=== PATIENT | male | born 1935 | race Caucasian/White ===

== ENCOUNTER 2017-02-04 07:55 | Inpatient (IN) | payer MEDICARE, OTHER ==
[~2017-02-04] VITALS: Ht 177.8 cm; Wt 82.6 kg
[~2017-02-04 07:55] MED LIST: ADULT LOW DOSE81 MG PO; AMITRIPTYLINE PO; AMITRIPTYLINE25 MG PO; CLONIDINE 0.1M0.1 MG TD; CLONIDINE 0.2M0.2 MG PO; CLOPIDOGREL75 M2 PO; DIFLUCAN100 MG PO; DITROPAN 5MG TAB5 MG PO; DOCUSATE SODIU100 MG PO; GENTAMICIN IV; LEVAQUIN500 MG PO; LEVOTHYROXINE0.05 M2 PO; LEVOTHYROXINE0.05 M3 PO; LISINOPRIL 20MG20 MG PO; LISINOPRIL20 MG PO; MACROBID 100MG100 M1 PO; METAMUCIL MULTI1 CAP PO; METAMUCIL(SF)1 EACH PO; NORTRIPTYLINE H25 M2 PO; OMEPRAZOLE20 MG PO; PERPHENAZINE4 MG PO; PERSANTINE50 MG PO; PROBIOTIC 15 B1 EACH PO; SURFAK 240MG C240 MG PO; TERAZOSIN PO; VALTREX1 GM PO; [UNRECOGNIZED DRUG - OTHER] PO
[2017-02-04 10:14] VITALS: BP 174/103
[2017-02-04 10:18] LABS: BUN 80 mg/dL (7-18); GFR (ESTIMATED) 11 ML/MIN (>60)
[2017-02-04] MEDS ORDERED: METOPROLOL SUCC50 M4 PO (10:38)
[2017-02-04] MEDS ORDERED: MYRBETRIQ25 MG PO (10:39)
[2017-02-04] MEDS ORDERED: AMLO5TAB PO ×2 (10:39→13:54)
[2017-02-04] MEDS ORDERED: DESIPRAMINE HCL25 MG PO (10:40)
[2017-02-04] MEDS ORDERED: METAMUCIL0.4 GM PO (10:41)
--- NOTE | 2017-02-04 10:52 | RADIOLOGY REPORT PS360 ---
CHEST-PORTABLE HISTORY: HBP, Acute renal insufficiency ORDERING PHYSICIAN: Roxana Virgen MD PATIENT AGE: 81 years COMPARISON: 10/04/2014 FINDINGS: There is mild cardiomegaly without failure. There is prominent tortuosity/ectasia of the thoracic aorta. There is increased density in the right lower lobe suggesting underlying atelectasis or infiltrate. The remaining lungs are clear.. No acute bony abnormalities. IMPRESSION: Mild cardiomegaly with tortuous/ectatic aorta with right basilar atelectasis or infiltrate.
[2017-02-04 11:57] VITALS: BP 174/103
--- NOTE | 2017-02-04 12:07 | HISTORY AND PHYSICAL REPORT ---
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 He was seen in the office of [facility] on 01/30/17 with elevated BP and metoprolol was added to his HTN med regime. Lisinopril, AMlodipine and Clonidine were continued. Lab results reported 02/03/14 revealed a K+ of 5.9, BUN 67, creatinine 3.4 and TSH of 5.4. PSA was 7.21 (was 8.5 07/25/16). Dr. Virgen contacted the patient's and arranged for admission today for further evaluation and treatment. Patient has denied CP and SOB. The patient's , who is a good historian, communicates the details of his problems. He has not been eating or drinking as well the past week but has had no nausea/vomiting/diarrhea. Bp has been elevated and she has been giving him the prn clonidine once or twice daily. He has been voiding as usually in his depends. He has had continuation of his "spells" where he slumps over like he is going to pass out with SOB. When asked if he is hurting at these times, he indicates that he is hurting all over. The spells are more sudden and occur with exertion. He does not have these every day. He was evaluated for the spells 4 years ago at [facility] when the family thought he was having another stroke. Studies at that time did not indicate strokes, but did not indicate a specific causative factor. At the time of this exam the patient denies pain and SOB. and son are at bedside. Past Medical History: Medical History: CAD? No Angina: No IA: No Hypertension? Yes Hyperlipidemia? No CHF? No COPD? Yes Asthma? No Anemia? No GERD? No Gastric ulcers? Yes GI Bleed? No Hernia? No Thyroid Problems? Yes Hypothyroidism? Yes CVA? Yes (right sided weakness) Seizures? No Diabetes? No Renal Insuffiency? Yes UTI? Yes Stones? No BPH? Yes GB Disease: No Nephritic Syndrome? No Asplenia? No Hepatitis? No Sickle Cell Disease? No Cataracts? No Glaucoma? No MRSA? No TB? No Depression? Yes Cancer? No Surgical history: Previous Surgery?Y DISCECTOMY 1968 KNEE ARTHROSCOPY DEVIATED SEPTUM Allergies: Coded Allergies: No Known Allergies (02/04/17) Family History: Family history: Negative for: CAD, DM. Social History: Smoking Hx Tobacco: No Smoker: Former Smoker Type: Cigarettes Packs/day: N/A Are you exposed to second hand No Alcohol: Alcohol: No Hx of Drug Use: Drug Use? No Patien't marital status is: Patient's support system is: excellent Review of Systems: Constitutional Positive for: weak. ENT No: ear ache, mouth pain, sore throat. Cardiovascular Positive for: DEXTER, edema. No: chest pain, palpitations. Respiratory Positive for: shortness of air. No: non-productive, productive cough (sputum), wheezing. GI No: GERD, abdominal pain, constipation, diarrhea, hematemeis, hematochezia, melena, nausea, vomitting. Neurological Positive for: weakness (dysarthia). No: confusion, headache, seizure, syncope. Physical Exam: Vital signs: 1ST Vital Signs Result Date Time Pulse Ox 98 02/04 1014 B/P 174/103 02/04 1014 O2 Delivery ROOM AIR 02/04 1014 Temp 97.7 02/04 1014 Pulse 64 02/04 1014 Resp 18 02/04 1014 Exam: General appearance: normal appearance, alert, no acute distress, well- developed, well-nourished Eyes: anicteric, pupils reactive to light ENT: mucous membranes moist, pharynx normal Neck: no carotid bruit, supple, lymphadenopathy (absent), thyroid (normal) Cardiovascular: normal sinus rhythm, regular rate & rhythm, no murmur, edema, irregularly irregular (right ankle) Respiratory: clear to auscultation (bilat anterior and posterior), good air movement ABD: non-distended, soft, no tenderness, no guarding, bowel sounds present, palpable liver Extremities: edema of right ankle; no palpable cords or masses in right leg; left leg without edema Neuro: alert, oriented, masklike facies, other, speech is slow and soft; mostly yes and no answers or nods head; slight left facial droop Lab data: Labs: Laboratory Tests 02/04/17 0950: Sodium 136, Potassium 5.9 H, Chloride 107, Carbon Dioxide 16 L, BUN 80 H, Creatinine 5.0 H, Estimated GFR (MDRD) 11, Glucose 120 H, Calcium 8.1 L, Total Bilirubin 0.5, AST 18, ALT 31, Alkaline Phosphatase 122 H, Total Protein 7.6, Albumin 3.7, Globulin 3.9 H, Albumin/Globulin Ratio 0.9 L Radiology results: Results: CXR 02/04/17 IMPRESSION: Mild cardiomegaly with tortuous/ectatic aorta with right basilar atelectasis or infiltrate. Diagnosis(es): 1. Acute renal failure Status: Acute 2. Benign prostatic hypertrophy Status: Chronic 3. Near syncope Status: Acute 4. Uncontrolled hypertension Status: Acute 5. Depression Status: Chronic 6. COPD Status: Chronic 7. History of CVA with residual deficit Status: Chronic Plan: IVF at 75/hour; HTN meds as ordered; Renal US and carotid studies; monitor labs (Corinna Bird APRN) Past Medical History: Medications: Reported Medications Lisinopril 20 MG PO DAILY #90 TAB L. Acidophilus/L. Rhamnosus (Probiotic 15 Billion Cell Cap) 1 EACH PO DAILY Amlodipine Besylate (Amlodipine) 5 MG PO QHS #60 TAB Mirabegron (Myrbetriq) 25 MG PO MoWeFr #30 TAB DESIPRAMINE HCL (Desipramine HCl) 25 MG PO MoWeFr #60 TAB Psyllium Husk (Metamucil) 0.4 GM PO DAILY Amlodipine Besylate (Amlodipine) 5 MG PO MoWeFr ASPIRIN (Aspirin) 81 MG PO DAILY LEVOTHYROXINE SOD (Levothyroxine 0.05MG) 0.05 MG PO DAILY Clonidine Hydrochloride (Clonidine 0.2MG Tab) 0.1 MG PO Q6H PRN PRN HTN Metoprolol Succinate (Metoprolol Succinate XL) 50 MG PO DAILY #30 CLOPIDOGREL BISULFATE (Clopidogrel) 75 MG PO DAILY #90 Diagnosis(es): 1. Uncontrolled hypertension Status: Acute 2. Acute renal failure Status: Acute 3. Hyperkalemia 4. Benign prostatic hypertrophy Status: Chronic 5. Near syncope Status: Acute 6. Depression Status: Chronic 7. COPD Status: Chronic 8. History of CVA with residual deficit Status: Chronic Plan: Pt seen and examined. Concur with above and will get cardiology consult (Roxana Virgen MD) at 1206 at [id number]
--- NOTE | 2017-02-04 12:10 | CARDIOVASCULAR REPORT ---
"Cerebrovascular Exam Indications: CVA 436. IMPRESSIONS 1. The bilateral subclavian arteries reveal no evidence of significant stenosis. 2. Study suggests 20-49% stenosis involving the right internal carotid artery and the left external carotid artery, lower end of scale. Carotid duplex study. Complete study and Doppler flow study including spectral analysis, color and matt scale imaging. Height: Height: 177.8cm. Height: 70in. Weight: Weight: 82.1kg. Weight: 180.6lb. Body mass index: BMI: 26kg/m^2. Body surface area: BSA: 2.02m^2. Location: Bedside. Patient status: Inpatient. Tables: Arterial flow: + +--------+--------+ |Location |V sys |V ed | + +--------+--------+ |Right CCA - proximal|68.5cm/s|11.9cm/s| + +--------+--------+ |Right CCA - distal |45.2cm/s|11.8cm/s| + +--------+--------+ |Right ECA |40.9cm/s|--------| + +--------+--------+ |Right ICA - proximal|36.2cm/s|9.8cm/s | + +--------+--------+ |Right ICA - mid |32.2cm/s|8.3cm/s | + +--------+--------+ |Right ICA - distal |24.6cm/s|10.1cm/s| + +--------+--------+ |Right vertebral |37.7cm/s|--------| + +--------+--------+ |Left CCA - proximal |34.7cm/s|5cm/s | + +--------+--------+ |Left CCA - distal |35.2cm/s|7cm/s | + +--------+--------+ |Left ECA |47.2cm/s|--------| + +--------+--------+ |Left ICA - proximal |28.8cm/s|8.2cm/s | + +--------+--------+ |Left ICA - mid |40.3cm/s|10.5cm/s| + +--------+--------+ |Left ICA - distal |42.6cm/s|11.5cm/s| + +--------+--------+ |Left vertebral |39cm/s |--------| + +--------+--------+ Velocity ratios: + + + + + + | |Right, V sys|Right, V ed|Left, V sys|Left, V ed| + + + + + + |Max ICA/dist CCA|0.8 |0.86 |1.21 |1.63 | + + + + + + (Report amended ) Electronically signed by: Christian Yates [id number]"
[2017-02-04 12:18] LABS: LYMPH # 0.7 K/mm3 (0.7-4.5); LYMPH % 9.6 % (10-50)
[2017-02-04 12:22] LABS: HEMOGLOBIN 10.6 g/dL (14.1-18.0)
--- NOTE | 2017-02-04 14:51 | RADIOLOGY REPORT PS360 ---
US [id number] HISTORY: uncontrolled HBP, acute renal insufficiency ORDERING PHYSICIAN: Roxana Virgen MD PATIENT AGE: 81 years COMPARISON: None FINDINGS: RIGHT KIDNEY:7.5 x 4 x 5.7 cm. No hydronephrosis. There is mild cortical thinning. LEFT KIDNEY:9.5 x 5.8 x 3.8 cm. No hydronephrosis. Cortical thinning. OTHER FINDINGS: Incidental left pleural effusion noted. IMPRESSION: Bilateral renal cortical thinning.
[2017-02-04 16:00] VITALS: BP 185/113
--- NOTE | 2017-02-04 16:47 | CONSULT NOTE ---
Standard Demographics Patient Demo Date of Consultation: 02/04/17 Referring Provider: Zhen Virgen MD Reason for Consultation: UNCONTROLLED HYPERTENSION, SHORTNESS OF BREATH, RENAL INS PRIMARY DIAGNOSIS: ACUTE RENAL INSUFFICIENCY Problem list Problem list: 1. Uncontrolled hypertension 2. Acute renal insufficiency with hyperkalemia 3. Shortness of breath with physical activity 4. Status post CVA 5. Chronic obstructive pulmonary disease and History of present illness: History of present illness: Chief complaint Shortness of breath, uncontrolled hypertension. Briefly Mr. Montoya is a pleasant 81-year-old gentleman with history of hypertension and hypertensive heart disease, status post CVA, nonobstructive carotid disease, chronic obstructive pulmonary disease, who presented to the hospital with worsening shortness of breath and found to have uncontrolled hypertension as well as acute renal failure associated with hyperkalemia. He describes no orthopnea PND he denied any exertional chest pain although he is physically not very active due to residual weakness from CVA. There is no history of hematemesis or melena, he denied any nausea and vomiting, he denies any fever or chills. Past Medical History: General: Hypertension Yes CVA Yes (right sided weakness) Seizures No TB No COPD No Asthma No Diabetes No Angina No [place] No Hyperlipidemia No Urinary Yes Cancer No Rheumatic H.D. No Ulcers No MRSA No GB Disease No Additional hx AAA Past Surgical HX: Previous Surgery?Y DISCECTOMY 1968 KNEE ARTHROSCOPY DEVIATED SEPTUM Allergies Coded Allergies: No Known Allergies (02/04/17) Home medications: Reported Medications Lisinopril 20 MG PO DAILY #90 TAB L. Acidophilus/L. Rhamnosus (Probiotic 15 Billion Cell Cap) 1 EACH PO DAILY Amlodipine Besylate (Amlodipine) 5 MG PO QHS #60 TAB Mirabegron (Myrbetriq) 25 MG PO MoWeFr #30 TAB DESIPRAMINE HCL (Desipramine HCl) 25 MG PO MoWeFr #60 TAB Psyllium Husk (Metamucil) 0.4 GM PO DAILY Amlodipine Besylate (Amlodipine) 5 MG PO MoWeFr ASPIRIN (Aspirin) 81 MG PO DAILY LEVOTHYROXINE SOD (Levothyroxine 0.05MG) 0.05 MG PO DAILY Clonidine Hydrochloride (Clonidine 0.2MG Tab) 0.1 MG PO Q6H PRN PRN HTN Metoprolol Succinate (Metoprolol Succinate XL) 50 MG PO DAILY #30 CLOPIDOGREL BISULFATE (Clopidogrel) 75 MG PO DAILY #90 Current Medications: Current Medications Amlodipine Besylate 5 MG MoWeFr@0900 PO Aspirin 81 MG DAILY PO Clopidogrel Bisulfate 75 MG DAILY PO Levothyroxine Sodium 0.05 MG DAILY PO Amlodipine Besylate 5 MG QHS PO (DC) Clonidine HCl 0.1 MG BID PO (DC) Isosorbide Dinitrate 10 MG TID PO Hydralazine HCl 25 MG Q8 PO Isosorbide Dinitrate 10 MG Q8 PO (DC) Clonidine HCl 0.1 MG TID PO Sodium Chloride 10 ML PRN PRN IV Patient Own Medication 1 UNIT MoWeFr PO Acetaminophen 650 MG Q4HP PRN PO Influenza Virus Vaccine Quadrival 0.5 ML PRN PRN IM Nicotine 21 MG DAILYP PRN TD Sodium Chloride 1,000 ML .[id number] IV Immunization HX DT/Tetanus Unknown Flu Refused Pneumonia Refuses TB Test in last year No Family history Family HX Diabetes Yes CAD Yes Hypertension No Hyperlipidemia No Cancer No TB No Social Hx: Smoking HX Tobacco No Type Cigarettes Packs/day N/A Are you/the child exposed to second-hand smoke: No Alcohol Alcohol: No Hx of Drug Use Drug Use? No Review of systems: Constitutional see HPI. Respiratory see HPI. Cardiovascular see HPI Gastrointestinal/Abdominal see HPI Genitourinary see HPI. Musculoskeletal see HPI. Neurological Yes: see HPI. Exam: Admission Vital Signs: 1ST Vital Signs Result Date Time Pulse Ox 98 02/04 1014 B/P 174/103 02/04 1014 O2 Delivery ROOM AIR 02/04 1014 Temp 97.7 02/04 1014 Pulse 64 02/04 1014 Resp 18 02/04 1014 Last Vital Signs: Vital Signs Result Date Time Pulse Ox 93 02/04 1600 B/P 185/113 02/04 1600 O2 Delivery ROOM AIR 02/04 1600 Temp 98.4 02/04 1600 Pulse 80 02/04 1600 Resp 20 02/04 1600 Exam General appearance: alert Neck: carotid bruit Cardiovascular: no JVD, regular rate & rhythm, normal peripheral pulses, no peripheral edema, murmur (systolic AORTIC AREA1/6), S4 present Respiratory: clear to auscultation ABD: non-distended, normal bowel sounds, no rebound, soft Extremities: no peripheral edema, femoral pulses, warm Laboratory data: Laboratory Tests 02/04/17 1200: WBC 7.5, RBC 3.38 L, Hgb 10.6 L, Hct 32.7 L, MCV 96.6, RDW 15.2, Plt Count 171, MPV 7.5, Gran % 82.6 H, Gran # 6.2, Lymphocytes % 9.6 L, Monocytes % 5.7, Eosinophils % 1.7, Basophils % 0.5, Lymphocytes # 0.7, Monocytes # 0.4, Eosinophils # 0.1, Basophils # 0.0, PUBS MCHC 32.3, MCH 31.3 H 02/04/17 0950: Sodium 136, Potassium 5.9 H, Chloride 107, Carbon Dioxide 16 L, BUN 80 H, Creatinine 5.0 H, Estimated GFR (MDRD) 11, Glucose 120 H, Calcium 8.1 L, Total Bilirubin 0.5, AST 18, ALT 31, Alkaline Phosphatase 122 H, Total Protein 7.6, Albumin 3.7, Globulin 3.9 H, Albumin/Globulin Ratio 0.9 L Plan: Assessment: 1. Hypertension and hypertensive heart disease with uncontrolled blood pressure 2. Acute renal failure with hyperkalemia. 3. Shortness of breath 4. Status post CVA 5. Chronic obstructive pulmonary disease Recommendations: 1. Hydralazine 25 mg every 8 hours 2. Isordil 10 mg every 8 hours 3. Clonidine 0.1 mg every 8 hours. 4. Decrease amlodipine 5 mg once daily 5. 2-D echo and Doppler 6. Will follow with you at 3244
--- NOTE | 2017-02-04 17:50 | RADIOLOGY REPORT PS360 ---
PROCEDURE: 2-D M-mode and color Doppler study INDICATIONS FOR THE TEST: Chest pain COPD+ Heart Murmur Tobacco Smoking Palpitations Fatigue+ Syncope Edema+ Hypertension+Diabetes Mellitus Rheumatic Fever SOB DEXTER+Obesity Hyperlipidemia+ Family History HD Additional History hx of CVA, Hx of smoking (quit 2008) PATIENT INFORMATION HEIGHT: WEIGHT: GENDER: Male B/P: 2-D/M-MODE INTERPRETATION: 2-D MEASUREMENTS OBSERVED VALUES IN CMS Right Ventricular Dimension (RVDd) 2.3 Interventricular Septum (Thickness)(IVsd) 1.2 Left Ventricular Internal Dimensions(LVIDd) 5.2 Left Ventricular Posterior Wall (Thickness)(LVPWd) 1.2 Aortic Root 2.2 Aortic Cusp Separation 2.0 Left Atrial Dimensions (LAD) 2.7 2D 1. Left atrium is qualitatively mildly enlarged, left ventricle is mildly dilated, there is mild concentric left ventricular hypertrophy, there is severely reduced left ventricular systolic function, visually estimated ejection fraction approximately 35%, there is marked hypokinesis involving the inferior and inferolateral and posterolateral wall, endocardial surface are somewhat poorly visualized. 2. The right atrium and right ventricle are relatively normal size and function. 3. The aortic valve is thickened and calcified leaflet, display mobility. 4. The mitral valve has mitral calcification there is no mitral stenosis. 5. The tricuspid valve is structurally normal. 6. The pulmonic valve is not well visualized. 7. No significant pericardial effusion noted. DOPPLER INTERROGATION: Doppler interrogation of the aortic mitral and tricuspid valvular presence of mild aortic, mild mitral and tricuspid regurgitation, tricuspid regurgitant jet velocity is insufficient for calculation of the right ventricular systolic pressure, grade 1 diastolic dysfunction seen with tissue Doppler evidence of raised left atrial pressure. CONCLUSION: 1. Mildly enlarged left atrium, mildly dilated left ventricle, mild concentric left ventricular hypertrophy, reduced left ventricular systolic function, visually estimated ejection fraction approximately 35% with multiple segmental wall motion abnormality described above. 2. Mild aortic, mild mitral and tricuspid regurgitation. 3. Grade 1 diastolic dysfunction seen with Doppler evidence of raised left atrial pressure. 4. No significant pericardial effusion noted.
[2017-02-04 19:38] VITALS: BP 157/87
[2017-02-04 20:56] VITALS: BP 157/87
[2017-02-05] VITALS (9 sets, daily range): BP systolic 138–169; BP diastolic 69–92
[2017-02-05 06:28] LABS: LYMPH % 11.9 % (10-50)
[2017-02-05 06:37] LABS: HEMOGLOBIN 9.4 g/dL (14.1-18.0)
--- NOTE | 2017-02-05 07:18 | PHARMACY CLINIC NOTE ---
Patient Demographics Patient Demographics Admission date: 02/04/17 Date: 02/05/17 Time: 0718 Allergies Coded Allergies: No Known Allergies (02/04/17) HEIGHT- FT: 5 IN: 10.00 K.745 VTE General Information Labs: Laboratory Tests 02/05 02/04 0618 1200 Hematology Hgb (14.1 - 18.0 g/dL) 9.4 L 10.6 L Hct (42.0 - 52.0 %) 29.6 L 32.7 L Plt Count (142 - 424 K/mm3) 178 171 Disclaimer The following section includes nursing documentation that has been pulled in for pharmacy review. Patient's VTE score: 3 Patient's VTE Risk: LOW RISK Clinical trial participant? No VTE prophylaxis NQF [id number] VTE prophylaxis ordered? Yes Type of prophylaxis/treatment: NORIS at 0718
--- NOTE | 2017-02-05 08:30 | ACUTE CARE PROGRESS NOTE (QUA) ---
Progress Notes Subjective Date 02/05/17 Time 0821 Note Pt states patient is about the same today. He has been having a lot of wheezing and SOA since yesterday. He has been unable to provide a urine specimen. She does not think he has had pain. He is able to stand with assistance. Objective Findings Last VS-Temp:99.2 B/P:143/88 Pulse:81 Resp:24 SaO2:94 ROOM AIR Last weight lbs:160 oz:6 K.745 Method:Bed Scales Laboratory Tests 02/05/17 0618: Sodium 137, Potassium 5.9 H, Chloride 109 H, Carbon Dioxide 13 L, BUN 80 H, Creatinine 4.8 H, Estimated Creat Clear 13 L, Estimated GFR (MDRD) 12, Glucose 93, Calcium 7.9 L, Total Bilirubin 0.5, AST 16, ALT 24, Alkaline Phosphatase 101, Total Protein 6.5, Albumin 3.2 L, Globulin 3.3 H, Albumin/Globulin Ratio 1.0 L, WBC 8.1, RBC 3.08 L, Hgb 9.4 L, Hct 29.6 L, MCV 95.5, RDW 15.3, Plt Count 178, MPV 7.3 L, Gran % 79.3, Gran # 6.4, Lymphocytes % 11.9, Monocytes % 5.0, Eosinophils % 3.2, Basophils % 0.6, Lymphocytes # 1.0, Monocytes # 0.4, Eosinophils # 0.3, Basophils # 0.1, PUBS MCHC 31.6 L, MCH 30.2 02/04/17 1200: Troponin I 0.05, WBC 7.5, RBC 3.38 L, Hgb 10.6 L, Hct 32.7 L, MCV 96.6, RDW 15.2, Plt Count 171, MPV 7.5, Gran % 82.6 H, Gran # 6.2, Lymphocytes % 9.6 L, Monocytes % 5.7, Eosinophils % 1.7, Basophils % 0.5, Lymphocytes # 0.7, Monocytes # 0.4, Eosinophils # 0.1, Basophils # 0.0, PUBS MCHC 32.3, MCH 31.3 H 02/04/17 0950: Sodium 136, Potassium 5.9 H, Chloride 107, Carbon Dioxide 16 L, BUN 80 H, Creatinine 5.0 H, Estimated GFR (MDRD) 11, Glucose 120 H, Calcium 8.1 L, Total Bilirubin 0.5, AST 18, ALT 31, Alkaline Phosphatase 122 H, Total Protein 7.6, Albumin 3.7, Globulin 3.9 H, Albumin/Globulin Ratio 0.9 L Carotid Doppler - Study suggests 20-49% stenosis involving the right internal carotid artery and the left external carotid artery, lower end of scale. CXR - Mild cardiomegaly with tortuous/ectatic aorta with right basilar atelectasis or infiltrate. Echo - Mildly enlarged left atrium, mildly dilated left ventricle, mild concentric left ventricular hypertrophy, reduced left ventricular systolic function, visually estimated ejection fraction approximately 35% with multiple segmental wall motion abnormality described above. Mild aortic, mild mitral and tricuspid regurgitation. Grade 1 diastolic dysfunction seen with Doppler evidence of raised left atrial pressure. No significant pericardial effusion noted. Renal U/S - Bilateral renal cortical thinning. Exam General appearance: awake, no acute distress, confused Cardiovascular: regular rate & rhythm Respiratory: labored breathing, expiratory wheezing bilaterally ABD: non-distended, normal bowel sounds, no rebound, soft, no tenderness, no guarding Extremities: no peripheral edema Assessment/Plan Problem List 1. Uncontrolled hypertension Status: Acute 2. Acute renal failure Status: Acute 3. Hyperkalemia 4. Benign prostatic hypertrophy Status: Chronic 5. Near syncope Status: Acute 6. Depression Status: Chronic 7. COPD Status: Chronic 8. History of CVA with residual deficit Status: Chronic 9. Shortness of breath Status: Acute 10. Wheezing Status: Acute Plan: Pt has been seen by cardiology. Note appreciated. Will repeat a CXR today and started on nebs d/t labored breathing and wheezing. Will discuss case with Dr. Virgen. This inpt stay is expected to cross 2 MNs from start of care Yes (Felipa Garcia) Subjective Date 02/05/17 Time 0836 Assessment/Plan Problem List 1. Uncontrolled hypertension Status: Acute 2. Acute renal failure Status: Acute 3. Hyperkalemia 4. Benign prostatic hypertrophy Status: Chronic 5. Near syncope Status: Acute 6. Depression Status: Chronic 7. COPD Status: Chronic 8. History of CVA with residual deficit Status: Chronic 9. Shortness of breath Status: Acute 10. Wheezing Status: Acute Plan: Pt seen and examined. Respirations more labored. Sats OK. Will repeat CXR and add Xopenex. BP is improved. Renal function marginally better. Seems to be making urine. Nurses now recording I&Os. (Roxana Virgen MD) at 0830 at 0838
[2017-02-05] MEDS ORDERED: AMLO5TAB PO (08:47)
[2017-02-05] MEDS ORDERED: MYRBETRIQ25 MG PO (08:48)
--- NOTE | 2017-02-05 09:08 | RADIOLOGY REPORT PS360 ---
CHEST-PORTABLE HISTORY: Congestion labored respirations ORDERING PHYSICIAN: Roxana Virgen MD PATIENT AGE: 81 years COMPARISON: 02/04/2017 FINDINGS: There is mild cardiomegaly without failure. There is tortuosity of the thoracic aorta.. Increasing density is present in the right lower lobe consistent with pneumonia is worse on today's exam.. Decreased density is noted in the right humerus and right scapula of cortical clinical significance.. IMPRESSION: Worsening right lower lobe pneumonia
[2017-02-05 12:41] LABS: URINE BILIRUBIN - DIPSTICK NEGATIVE (NEG); URINE BLOOD NEGATIVE (NEG)
[2017-02-05 12:59] LABS: URINE SQUAMOUS CELLS OCC #/hpf (OCC)
--- NOTE | 2017-02-05 15:29 | ACUTE CARE PROGRESS NOTE (QUA) ---
Progress Notes Subjective Date 02/05/17 Time 0150 Note Cardiology progress note Patient appears to be more comfortable today, blood pressure under better control, an echocardiogram showed severe LEFT ventricular systolic dysfunction ejection fraction of 35 percent with multiple segmental wall motion abnormalities suggestive of ischemic cardiomyopathy, Doppler evidence of greatest LEFT atrial pressure was also seen. Chest x-ray shows worsening infiltrate suggestive of pneumonia. He has more shortness of breath this morning which responded to breathing treatment. He describes no orthopnea PND or lower extremity edema. Medications: Reviewed Chest x-ray: Reviewed Labs: Reviewed. Physical exam Pulse 64 regular blood pressure 167/70 HEENT exam: JVP difficult to assess, bilateral carotid bruits versus conducted aortic murmur Lungs: Bilateral diffuse rhonchi Cardiovascular exam S1-S2, 2/6 systolic murmur in aortic area, prominent S4, no S3 Abdomen :soft bowel sounds present Extremity: Warm and perfused, no edema. Impression 1. Hypertension and hypertensive heart disease blood pressure under better control 2. Severe LV systolic dysfunction likely secondary to underlying ischemic cardiomyopathy, likely multivessel coronary artery disease, patient currently not a good candidate for aggressive intervention, we will treat medically. 3. Acute renal failure and hyperkalemia. 4. Chronic obstructive pulmonary disease and pneumonia. 5. Anemia. Recommend 1. Increase hydralazine 50 mg every 8, increased Isordil 20 mg 3 times a day. 2. Continue supportive care. 3. Discussed in length with the family members regarding the cardiac condition, we will treat conservatively. Assessment/Plan Problem List 1. Uncontrolled hypertension Status: Acute 2. Acute renal failure Status: Acute 3. Hyperkalemia 4. Benign prostatic hypertrophy Status: Chronic 5. Near syncope Status: Acute 6. Depression Status: Chronic 7. COPD Status: Chronic 8. History of CVA with residual deficit Status: Chronic 9. Shortness of breath Status: Acute 10. Wheezing Status: Acute This inpt stay is expected to cross 2 MNs from start of care Yes at [id number]
[2017-02-06 03:38] VITALS: BP 135/71
[2017-02-06] MEDS ORDERED: DESIPRAMINE HCL25 MG PO (07:35)
[2017-02-06 08:00] VITALS: BP 147/79
[2017-02-06 08:07] LABS: HEMOGLOBIN 8.6 g/dL (14.1-18.0); LYMPH # 0.6 K/mm3 (0.7-4.5); LYMPH % 8.2 % (10-50)
--- NOTE | 2017-02-06 08:35 | ACUTE CARE PROGRESS NOTE (QUA) ---
Progress Notes Subjective Date 02/06/17 Time 0831 Note Pt's breathing has improved. He did have an episode of SOA last night and did get choked this am. Overall, his states the wheezing has improved. He is extremely weak. Cardiology note appreciated. BP has improved. Objective Findings Last VS-Temp:98.2 B/P:147/79 Pulse:90 Resp:18 SaO2:95 ROOM AIR Last weight lbs:160 oz:6 K.745 Method:Bed Scales Laboratory Tests 02/06/17 0620: Sodium 137, Potassium 5.8 H, Chloride 108 H, Carbon Dioxide 11 L, BUN 82 H, Creatinine 4.6 H, Estimated Creat Clear 13 L, Estimated GFR (MDRD) 12, Glucose 97, Calcium 7.5 L, WBC 7.7, RBC 2.87 L, Hgb 8.6 L, Hct 27.2 L, MCV 94.9, RDW 15.5, Plt Count 212, MPV 6.8 L, Gran % 83.8 H, Gran # 6.4, Lymphocytes % 8.2 L, Monocytes % 5.6, Eosinophils % 1.9, Basophils % 0.5, Lymphocytes # 0.6 L, Monocytes # 0.4, Eosinophils # 0.1, Basophils # 0.0, PUBS MCHC 31.8, MCH 30.1 02/05/17 141: Mycoplasma pneumon IgM NON-REACTIVE 02/05/17 0930: Urine Color YELLOW, Urine Appearance SL CLOUDY, Urine pH 5.5, Ur Specific [place] 1.020, Urine Protein 2+ H, Urine Ketones NEGATIVE, Urine Blood NEGATIVE , Urine Nitrate NEGATIVE, Urine Bilirubin NEGATIVE, Urine Urobilinogen 0.2, Ur Leukocyte Esterase NEGATIVE, Urine WBC 5-10, Ur Squamous Epith Cells OCC, Urine Bacteria 2+, Coarse Granular Casts 3-5, Urine Glucose NEGATIVE Microbiology 02/05 1415 BLOOD: Anaerobic Blood Culture - RECD 02/05 1415 BLOOD: Aerobic Blood Culture - RECD 02/05 1415 BLOOD: Anaerobic Blood Culture - RECD 02/05 1415 BLOOD: Aerobic Blood Culture - RECD 02/05 930 URINE CC: Urine Culture - RECD Exam General appearance: alert, awake, lethargic Cardiovascular: regular rate & rhythm Respiratory: much better air movement, no wheezing ABD: non-distended, normal bowel sounds, no rebound, soft, no guarding, diffusely ttp Extremities: no peripheral edema Assessment/Plan Problem List 1. Pneumonia Status: Acute 2. Uncontrolled hypertension Status: Acute 3. Acute renal failure Status: Acute 4. Hyperkalemia 5. Benign prostatic hypertrophy Status: Chronic 6. Near syncope Status: Acute 7. Depression Status: Chronic 8. COPD Status: Chronic 9. History of CVA with residual deficit Status: Chronic 10. Shortness of breath Status: Acute 11. Wheezing Status: Acute Plan: Breathing has improved. Abx and nebs were added yesterday. Renal function is only slightly better. BP has improved. Will continue current treatment and monitor labs. This inpt stay is expected to cross 2 MNs from start of care Yes (Felipa Garcia) Subjective Date 02/06/17 Time 0845 Assessment/Plan Problem List 1. Pneumonia Status: Acute 2. Uncontrolled hypertension Status: Acute 3. Acute renal failure Status: Acute 4. Hyperkalemia 5. Benign prostatic hypertrophy Status: Chronic 6. Near syncope Status: Acute 7. Depression Status: Chronic 8. COPD Status: Chronic 9. History of CVA with residual deficit Status: Chronic 10. Shortness of breath Status: Acute 11. Wheezing Status: Acute Plan: Pt seen and examined. He is breathing comfortably this morning. Concur with above. Had long discussion with regarding multiorgan disease. (Roxana Virgen MD) at 0835 at 1208
[2017-02-06 09:00] VITALS: BP 147/79
[2017-02-06 12:00] VITALS: BP 172/66
[2017-02-06 16:01] VITALS: BP 130/71
[2017-02-06 20:35] VITALS: BP 149/82
[2017-02-07] VITALS (9 sets, daily range): BP systolic 117–177; BP diastolic 61–89
[2017-02-07 07:38] LABS: HEMOGLOBIN 8.5 g/dL (14.1-18.0); LYMPH # 0.7 K/mm3 (0.7-4.5)
--- NOTE | 2017-02-07 08:36 | ACUTE CARE PROGRESS NOTE (QUA) ---
Progress Notes Subjective Date 02/07/17 Time 0833 Note Pt states he is feeling a little better today. He slept better and ate most of his breakfast. SOA has improved. His son would like for him to be started on something for anxiety. Objective Findings Last VS-Temp:98.6 B/P:177/61 Pulse:95 Resp:18 SaO2:92 ROOM AIR Last weight lbs:170 oz:5 K.252 Method:Bed Scales Laboratory Tests 02/07/17 0645: Sodium 136, Potassium 5.6 H, Chloride 108 H, Carbon Dioxide 11 L, BUN 73 H, Creatinine 4.5 H, Estimated Creat Clear 14 L, Estimated GFR (MDRD) 13, Glucose 94, Calcium 7.6 L, WBC 6.7, RBC 2.68 L, Hgb 8.5 L, Hct 25.5 L, MCV 95.2, RDW 15.7, Plt Count 212, MPV 6.7 L, Gran % 80.2 H, Gran # 5.4, Lymphocytes % 10.0, Monocytes % 5.3, Eosinophils % 4.3, Basophils % 0.3, Lymphocytes # 0.7, Monocytes # 0.4, Eosinophils # 0.3, Basophils # 0.0, PUBS MCHC 33.4, MCH 31.8 H Exam General appearance: alert, awake, no acute distress Cardiovascular: regular rate & rhythm Respiratory: better air movement, less wheezing ABD: non-distended, normal bowel sounds, no rebound, soft, no tenderness, no guarding Extremities: no peripheral edema Assessment/Plan Problem List 1. Pneumonia Status: Acute 2. Uncontrolled hypertension Status: Acute 3. Acute renal failure Status: Acute 4. Hyperkalemia 5. Benign prostatic hypertrophy Status: Chronic 6. Near syncope Status: Acute 7. Depression Status: Chronic 8. COPD Status: Chronic 9. History of CVA with residual deficit Status: Chronic 10. Shortness of breath Status: Acute 11. Wheezing Status: Acute Plan: Renal function has only improved slightly. H&H is low. May need to transfuse today. Will discuss with Dr. Virgen. This inpt stay is expected to cross 2 MNs from start of care Yes (Felipa Garcia) Assessment/Plan Problem List 1. Pneumonia Status: Acute 2. Uncontrolled hypertension Status: Acute 3. Acute renal failure Status: Acute 4. Hyperkalemia 5. Benign prostatic hypertrophy Status: Chronic 6. Near syncope Status: Acute 7. Depression Status: Chronic 8. COPD Status: Chronic 9. History of CVA with residual deficit Status: Chronic 10. Anemia Plan: Pt seen and examined. He rested better with only one episode of dyspnea and staff and family questioned if anxiety is playing a part. Will try prn Ativan. Renal is very slowly improving and H&H has decreased a little more. Anemia is likely multifactorial but he is hemodynamically stable. Will continue to monitor and also check anemia studies. Also note he has not had BM since admission. Will resume his Metamucil. (Roxana Virgen MD) at 0836 at 1250
[2017-02-08 03:25] VITALS: BP 160/84
[2017-02-08 07:44] LABS: HEMOGLOBIN 8.5 g/dL (14.1-18.0); LYMPH # 0.8 K/mm3 (0.7-4.5); LYMPH % 11.3 % (10-50)
[2017-02-08 07:45] VITALS: BP 146/76
--- NOTE | 2017-02-08 08:44 | ACUTE CARE PROGRESS NOTE (QUA) ---
Progress Notes Subjective Date 02/08/17 Time 0841 Note Had another episode of acute resp distress after getting up to chiar yesterday afternoon. Lasted about 45 minutes. Staff notes he seemed to have more stridor than bronchospasm. He recieved a dose of Ativan and symptoms resoloved. Rested well the rest of the day and through the night. Appetite remains good. No BM but no c/o pain. Objective Findings Laboratory Tests 02/08/17 0655: Sodium 136, Potassium 5.6 H, Chloride 109 H, Carbon Dioxide 12 L, BUN 67 H, Creatinine 4.5 H, Estimated Creat Clear 15 L, Estimated GFR (MDRD) 13, Glucose 97, Calcium 7.5 L, WBC 6.7, RBC 2.76 L, Hgb 8.5 L, Hct 26.6 L, MCV 96.5, RDW 15.3, Plt Count 241, MPV 6.7 L, Gran % 74.6, Gran # 5.0, Lymphocytes % 11.3, Monocytes % 6.6, Eosinophils % 7.1, Basophils % 0.4, Lymphocytes # 0.8, Monocytes # 0.4, Eosinophils # 0.5 H, Basophils # 0.0, PUBS MCHC 32.1, MCH 31.0 02/07/17 0908: Ferritin 37 Last VS-Temp:98.2 B/P:146/76 Pulse:95 Resp:20 SaO2:95 ROOM AIR Last weight lbs:175 oz:5 K.52 Method:Bed Scales Exam General appearance: Lying in bed with eyes closed. Responds to voice and answers yes/no questions appropriately. No resp. distress Eyes: anicteric ENT: mucous membranes moist Cardiovascular: regular rate & rhythm Respiratory: diminished in bases. Very faint wheezes ABD: non-distended, normal bowel sounds, soft, no tenderness Extremities: no peripheral edema Skin: intact, warm Neuro: unchanged Reviewed: medications, vital signs, lab results, nursing notes Assessment/Plan Problem List 1. Pneumonia Status: Acute 2. Uncontrolled hypertension Status: Acute Assessment/Plan improved 3. Acute renal failure Status: Acute 4. Hyperkalemia 5. Benign prostatic hypertrophy Status: Chronic 6. Near syncope Status: Acute 7. Depression Status: Chronic 8. COPD Status: Chronic 9. History of CVA with residual deficit Status: Chronic 10. Anemia Patient condition Guarded Plan: Reviewed all diagnoses and current condition with and son. He is stable but guarded due to multiple comorbidities. Etiology of these acute episodes of resp distress is not clear but consistently occur with activity so likely related to degree of CHF, COPD and now the pneumonia. Will try adding steroids. Renal function did not show much change today. H&H has stablized. Anemia studies are pending. This inpt stay is expected to cross 2 MNs from start of care Yes at 2802
[2017-02-08 09:05] VITALS: BP 146/76
[2017-02-08 11:34] VITALS: BP 149/82
[2017-02-08 20:44] VITALS: BP 198/102
[2017-02-08 21:14] VITALS: BP 198/102
[2017-02-09] VITALS (8 sets, daily range): BP systolic 134–193; BP diastolic 70–98
[2017-02-09 06:54] LABS: URINE BILIRUBIN - DIPSTICK NEGATIVE (NEG); URINE BLOOD NEGATIVE (NEG)
[2017-02-09 06:59] LABS: LYMPH # 0.4 K/mm3 (0.7-4.5); LYMPH % 6.1 % (10-50)
[2017-02-09 07:03] LABS: HEMOGLOBIN 9.6 g/dL (14.1-18.0)
[2017-02-09 08:00] LABS: STOOL OCCULT BLOOD POSITIVE (NEG)
--- NOTE | 2017-02-09 08:32 | ACUTE CARE PROGRESS NOTE (QUA) ---
Progress Notes Subjective Date 02/09/17 Time 0817 Note Per family: did fine until 0500 at which time he awakened with pain; son who stayed the night thought he was going to have another respiratory spell. He was having abdominal discomfort. Weight gain was noted along with edema of extremities. He was given 20mg lasix IV and ibarra cath was inserted. 200ml of urine was obtained and the cath was removed. Ibarra insertion was painful. He has had 3 stools during the night. states that he did not sit in a chair yesterday and she is concerned with the elevation of the BP. He ate a good breakfast yesterday but ate poorly for lunch and dinner. Had a fairly good day yesterday. This AM patient answers yes to all questions. Objective Findings Laboratory Tests 02/09/17 0640: Urine Color YELLOW, Urine Appearance CLOUDY, Urine pH 5.0, Ur Specific [place] 1.020, Urine Protein TRACE H, Urine Ketones NEGATIVE, Urine Blood NEGATIVE, Urine Nitrate NEGATIVE, Urine Bilirubin NEGATIVE, Urine Urobilinogen 0.2, Ur Leukocyte Esterase NEGATIVE, Urine RBC OCC, Urine WBC 3-5, Ur Squamous Epith Cells 5-10, Urine Bacteria 3+, Urine Glucose NEGATIVE 02/09/17 0600: Sodium 132 L, Potassium 5.7 H, Chloride 105, Carbon Dioxide 10 *L, BUN 68 H, Creatinine 4.6 H, Estimated Creat Clear 15 L, Estimated GFR (MDRD) 12, Glucose 137 H, Calcium 8.5, WBC 5.6, RBC 3.11 L, Hgb 9.6 L, Hct 29.6 L, MCV 95.2, RDW 15.2, Plt Count 297, MPV 6.4 L, Gran % 92.3 H, Gran # 5.2, Lymphocytes % 6.1 L, Monocytes % 1.2 L, Eosinophils % 0.3, Basophils % 0.0 L, Lymphocytes # 0.4 L, Monocytes # 0.1, Eosinophils # 0.0, Basophils # 0.0, PUBS MCHC 31.9, MCH 30.3 02/09/17 0530: Stool Occult Blood POSITIVE Microbiology 02/09 0640 URINE CC: Urine Culture - RECD Vital Signs Date Time Temp Pulse Resp B/P Pulse O2 O2 Flow FiO2 Ox Delivery Rate 02/09 0816 98.0 110 24 193/98 92 ROOM AIR 02/09 0548 24 02/09 0515 95 ROOM AIR 02/09 0359 97.7 95 24 165/91 93 ROOM AIR 02/09 0033 98.9 90 20 134/70 93 ROOM AIR 02/08 2114 98.1 94 20 198/102 95 02/08 2044 98.1 94 20 198/102 95 ROOM AIR 02/08 1134 98.6 87 20 149/82 94 ROOM AIR 02/08 0905 98.2 95 20 146/76 95 Current Medications Furosemide 20 MG ONCE ONE IV (DC) Lorazepam 0 .STK-MED ONE .ROUTE (DC) Furosemide 0 .STK-MED ONE .ROUTE (DC) Methylprednisolone Sodium Succinate 0 .STK-MED ONE .ROUTE (DC) Methylprednisolone Sodium Succinate 60 MG Q8 IV Lorazepam 0.25 MG Q6HP PRN PO Psyllium Hydrophilic Mucilloid 1 EACH DAILY PO Levalbuterol HCl 1.25 MG Q6HP PRN INH Azithromycin 500 MG Q24H IV Sodium Chloride 250 ML Ceftriaxone Sodium 1 GM DAILY IV Sodium Chloride 50 ML Guaifenesin/Dextromethorphan 10 ML Q4HP PRN PO Isosorbide Dinitrate 20 MG TID PO Levalbuterol HCl 1.25 MG TIDRT INH Hydralazine HCl 50 MG Q8H PO Aspirin 81 MG DAILY PO Clopidogrel Bisulfate 75 MG DAILY PO Levothyroxine Sodium 0.05 MG DAILY PO Clonidine HCl 0.1 MG TID PO Sodium Chloride 10 ML PRN PRN IV Patient Own Medication 1 UNIT MoWeFr PO Acetaminophen 650 MG Q4HP PRN PO Influenza Virus Vaccine Quadrival 0.5 ML PRN PRN IM Nicotine 21 MG DAILYP PRN TD Sodium Chloride 1,000 ML .[id number] IV 02/08 1500 02/08 2300 02/09 0700 Intake Total 360 360 325 Output Total 500 550 600 Balance -140 -190 -275 Intake, IV 325 Intake, Oral 360 360 Output, Stool Output, Urine 500 550 600 Patient 182 lb Weight Last VS-Temp:98.0 B/P:193/98 Pulse:110 Resp:24 SaO2:92 ROOM AIR Last weight lbs:182 oz:1 K.582 Method:Bed Scales Exam General appearance: alert, no acute distress Cardiovascular: regular rate & rhythm Respiratory: poor inspiratory effort; increase in RR with any activity; Few audible crackles in the bases ABD: soft, SP tenderness; + BS soft Extremities: edema of left arm NORIS hose on ; no leg edema Neuro: alert Assessment/Plan Problem List 1. Pneumonia Status: Acute 2. Uncontrolled hypertension Status: Acute 3. Acute renal failure Status: Acute 4. Hyperkalemia 5. Benign prostatic hypertrophy Status: Chronic 6. Near syncope Status: Acute 7. Depression Status: Chronic 8. COPD Status: Chronic 9. History of CVA with residual deficit Status: Chronic 10. Anemia 11. Constipation Status: Acute 12. Abdominal pain Status: Chronic Patient condition Guarded Plan: continue current care, Will do repeat CXR and acute abdominal series This inpt stay is expected to cross 2 MNs from start of care Yes (Corinna Bird APRN) Subjective Date 02/09/17 Time 1832 Assessment/Plan Problem List 1. Pneumonia Status: Acute 2. Uncontrolled hypertension Status: Acute 3. Acute renal failure Status: Acute 4. Hyperkalemia 5. Benign prostatic hypertrophy Status: Chronic 6. Near syncope Status: Acute 7. Depression Status: Chronic 8. COPD Status: Chronic 9. History of CVA with residual deficit Status: Chronic 10. Anemia 11. Constipation Status: Acute 12. Abdominal pain Status: Chronic 13. Cardiomyopathy Plan: Pt seen on rounds this AM and again this evening. Had long discussion with and son regarding worsening prognosis. Renal function has declined and he is retaining more fluids. Pneumonia is worse on CXR. Cardiology recommendations noted. He is not a candidate for cardiac intervention and family had previously decided against dialysis so with neither of these interventions, prognosis is poor. Offered transfer to tertiary facility but with no plans for invasive procedures, family wishes for him to remain here and continue current treatment plan. Will consult pulmonology for any recommendations regarding his pneumonia. Also discussed rodent exterminator disposition options in terms of skilled care, home health or Hospice. Family would like more information from Care Management. (Param VILLAR,Roxana Fontaine) Antibiotic Stewardship (2) Current Culture Results Microbiology 02/09 0640 URINE CC: Urine Culture - RECD 02/05 1415 BLOOD: Anaerobic Blood Culture - RES 02/05 1415 BLOOD: Aerobic Blood Culture - RES Infxn that will respond? Yes Right drug,dose,and route? Yes More targeted antbx? No How long atbx needed? 10 (Corinna Bird APRN) at 0832 at 1273
--- NOTE | 2017-02-09 13:05 | RADIOLOGY REPORT PS360 ---
CHEST-PORTABLE Ordering Physician: Roxana Virgen MD Patient Age: 81 years: Male TECHNIQUE: AP portable upright chest HISTORY: abdominal pain. Short of breath chest symptoms COMPARISON is made to previous chest film 02/05/2017 FINDINGS Right chest: Additional density inferior right hemithorax. Likely reflects pleural effusion along with airspace disease which is new and has developed since prior studies. Old chest films and prior CT chest dating back to 2011 show chronic changes at the right base but current findings are new versus 02/05/2017 reflecting progressive changes. Left chest New airspace disease at medial left base -obscures the descending aorta & left hemidiaphragm. Suspect mainly atelectasis but possible associated infiltrate. The left hemidiaphragm was previously sharp well-defined but now now poorly delineated due to the interval change. The upper lung garcia are clear with no CHF mild cardiomegaly. front desk monitor leads in place. IMPRESSION: Worsening pneumonia bilateral lower since 02/05 cxr Increased density at the bases .-Most evident density throughout right base Inferior right chest: Question developing pleural effusion plus progressive infiltrate, now Partially Obscured right hemidiaphragm Inferior left chest --. new infiltrate medial LLL. Airspace disease obscures left hemidiaphragm. & Most dense medially left lung base. Cardiomegaly. No CHF
--- NOTE | 2017-02-09 13:09 | RADIOLOGY REPORT PS360 ---
ABDOMEN-FLAT UPRIGHT Ordering Physician: Roxana Virgen MD Patient Age: 81 years: Male HISTORY: abdominal painabdominal pain and distention TECHNIQUE: Flat and upright views abdomen COMPARISON is made to 08/27/2012 FINDINGS Prominent gas is seen throughout large bowel and lesser degree small bowel . Increased stool, large amount stool throughout the right colon and low-lying cecum and right pelvis suggesting constipation . generous gas moderately distending the transverse colon which measures up to 10 cm on this portable upright abdomen. This likely does include 20% magnification. Similar appearance was seen at the transverse colon 2012. Moderate stool and gas throughout the left colon. There is generous small bowel gas but only scattered nonspecific air-fluid levels. Borderline dilated small bowel. Findings could reflect ileus as well IMPRESSION: Increased stool, prominent stool right colon suggesting constipation at the right colon Generous gaseous distention of transverse colon is similar to previous studies from 2012 Borderline-mild gaseous distention of small bowel with scattered air-fluid levels. Nonspecific. Possible ileus. Doubt obstruction at this point. . Consider CT if significant abdominal pain. Additional note. A CT chest from 2012 included abdomen pelvis-it showed extensive atherosclerotic disease aorta as well as prominent gaseous distention of the transverse, right colon & sigmoid colon at that time. Thus the colon findings may be in part long-standing.
[2017-02-09 14:24] LABS: CORRECTED WBC 5.5 K/mm3; NEUTROPHILS 94 % (42-76)
[2017-02-09 14:39] LABS: Folate (Folic Acid) 12.2 ng/mL (>3.0)
--- NOTE | 2017-02-09 16:50 | ACUTE CARE PROGRESS NOTE (QUA) ---
Progress Notes Subjective Date 02/09/17 Time 1644 Note 81 yo WM in bed. Still with episodes of SOA and still with edema. IVF now off. BP still labile. Objective Findings Last VS-Temp:98.1 B/P:151/85 Pulse:94 Resp:22 SaO2:94 ROOM AIR Last weight lbs:182 oz:1 K.582 Method:Bed Scales Exam General appearance: awake, no acute distress Cardiovascular: regular rate & rhythm Respiratory: decreased breath sounds but slightly improved. Extremities: moves all, edema Neuro: alert Reviewed: medications, vital signs, lab results Assessment/Plan Problem List 1. Pneumonia Status: Acute 2. Uncontrolled hypertension Status: Acute Assessment/Plan: Still labile. 3. Acute renal failure Status: Acute Assessment/Plan: slightly improved. 4. Hyperkalemia 5. Benign prostatic hypertrophy Status: Chronic 6. Near syncope Status: Acute 7. Depression Status: Chronic 8. COPD Status: Chronic 9. History of CVA with residual deficit Status: Chronic 10. Anemia 11. Constipation Status: Acute 12. Abdominal pain Status: Chronic 13. Cardiomyopathy Assessment/Plan: EF 25% by echo. Patient condition Guarded Plan: Increase hydrazaline to 75 mg TID. Increase isordil to 50 mg TID. Change nebulizer to xopenex due to tachycardia. Poor prognosis. This inpt stay is expected to cross 2 MNs from start of care Yes Antibiotic Stewardship (2) Infxn that will respond? Yes Right drug,dose,and route? Yes More targeted antbx? No at [id number]
[2017-02-10] VITALS (7 sets, daily range): BP systolic 141–162; BP diastolic 71–83
--- NOTE | 2017-02-10 07:59 | ACUTE CARE PROGRESS NOTE (QUA) ---
Progress Notes Subjective Date 02/10/17 Time 0754 Note Pt's son states he is feeling a little better today. Slept well. Ate a good breakfast. Did have a breathing episode when he got up to the chair yesterday but has been breathing well since. He denies any pain. Objective Findings Last VS-Temp:98.4 B/P:156/83 Pulse:95 Resp:22 SaO2:94 ROOM AIR Last weight lbs:182 oz:4 K.667 Method:Bed Scales Laboratory Tests 02/10/17 0627: Sodium 132 L, Potassium 5.1, Chloride 105, Carbon Dioxide 12 L, BUN 82 H, Creatinine 4.8 H, Estimated Creat Clear 14 L, Estimated GFR (MDRD) 12, Glucose 114 H, Calcium 8.1 L Exam General appearance: alert, awake, no acute distress Cardiovascular: regular rate & rhythm Respiratory: faint basilar rales, no wheezing ABD: normal bowel sounds, no rebound, soft, no tenderness, no guarding, distended Extremities: no peripheral edema Assessment/Plan Problem List 1. Pneumonia Status: Acute 2. Uncontrolled hypertension Status: Acute 3. Acute renal failure Status: Acute 4. Hyperkalemia 5. Benign prostatic hypertrophy Status: Chronic 6. Near syncope Status: Acute 7. Depression Status: Chronic 8. COPD Status: Chronic 9. History of CVA with residual deficit Status: Chronic 10. Anemia 11. Constipation Status: Acute 12. Abdominal pain Status: Chronic 13. Cardiomyopathy Plan: Will need to discuss disposition options with patient and his family today. Poor prognosis. This inpt stay is expected to cross 2 MNs from start of care Yes (Felipa Garcia) Subjective Date 02/10/17 Time 0842 Assessment/Plan Problem List 1. Pneumonia Status: Acute 2. Uncontrolled hypertension Status: Acute 3. Acute renal failure Status: Acute 4. Hyperkalemia 5. Benign prostatic hypertrophy Status: Chronic 6. Near syncope Status: Acute 7. Depression Status: Chronic 8. COPD Status: Chronic 9. History of CVA with residual deficit Status: Chronic 10. Anemia 11. Constipation Status: Acute 12. Abdominal pain Status: Chronic 13. Cardiomyopathy Plan: No episodes of respiratory distress. Rested well. Family would pulmonology consult but understand poor prognosis and are amenable to end of life care. Will have care management meet with family to discuss options. (ParamRoxana milner MD) Antibiotic Stewardship (2) Infxn that will respond? Yes Right drug,dose,and route? Yes More targeted antbx? No (Felipa Garcia) at 0753 at [phone]
--- NOTE | 2017-02-10 18:12 | CONSULT NOTE ---
Consult Note Note: Reason for the Consult: Pneumonia, severe COPD Requested by: Dr. Reddy and Practitioner Alvin The medical history is unobtainable from Mr. Torre because he is aphasic and may also be unable to understand me. My history is from the medical record. Mr. 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 He was admitted here on February 04 because he had not been eating or drinking well in the prior week and had an elevated blood pressure. He was found to have advancing renal failure. He has had "spells" characterized by slumping over and a possible change in consciousness and significant shortness of breath. I understand that, when he is moved, he complains of more dyspnea as well. He also complains of generalized pains "all over." On the admission note, he apparently was not having chest pain or dyspnea, at least at rest. He only becomes dyspneic when he was moving. These spells have gone on for at least 4 years. New strokes have not been identified. The rest of the review of systems is unobtainable. However, from the medical record, I see that he has been troubled by symptoms of bladder outlet obstruction and past medical history shows that he had ablation of the prostate. Past medical history is also significant for hypothyroidism, gastric ulcers, depression and he has had a lumbar disc surgery and knee arthroscopy. He apparently had a seizure in 1985. He has also been troubled by constipation and depression. There are no known ALLERGIES. 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 He and his lived on a farm and she takes care of him. He apparently has 2 children. He smoked at least 2 packages of cigarettes daily and for many years after having the stroke as well. He apparently has quit. Family history: This is significant for emphysema and heart disease. A brother after surgery for aneurysm repair (I don't know the type) but he had a massive stroke. Cardiovascular disease is prevalent in the family. On physical appearance today, he is a pale, gaunt man lying in bed at about 20 degrees elevation. He appears comfortable and he is alert but he could not answer me at all. Vital signs: Blood pressure 141/72, temperature 97.9 (and he's been afebrile since coming in), pulse 100, respiratory rate 18 and oxygen saturation 95 percent on room air. Neurological: He clearly has flaccid paralysis of the RIGHT arm now and didn't move his legs for me when I asked. There appeared to be some spasticity on the RIGHT. He does have a masklike face sees. He moves his eyes well and his pupils react to light. When I asked him questions, he responded in a whisper and was completely inarticulate so that I could not understand. Skin: No rash HEENT: Sclerae clear; conjunctivae pink; no obvious mucosal lesions. Neck: JVD 1-2 cm above the RIGHT clavicle while nearly flat. No adenopathy. Chest: Symmetrical expansion; normal percussion note bilaterally; decreased breath sounds and no adventitious sounds. Heart: Regular rhythm; no murmur. Abdomen: Slightly distended; diminished bowel sounds; soft and nontender in the liver edges perhaps a couple of centimeters below the RIGHT costal margin. I do not feel a spleen. Extremities: No clubbing but there is edema of the RIGHT leg and no obvious edema of the LEFT leg. I reviewed a chest x-ray from February 09 which shows marked uncoiling of the thoracic aorta and hazy densities bilaterally at the bases. This is an AP semi- recumbent radiograph. I also reviewed a CT angiogram performed in August 2012. It demonstrates abnormalities of the thoracic and abdominal aorta which have been read as plaque but I wonder if they represent a chronic dissection. He had some atelectasis at the bases at that time and groundglass opacity in the lower lung garcia on the RIGHT. No pulmonary emboli were identified. I reviewed his medical record here including Cardiology consultation notes and laboratory data and see that his creatinine has been around 5 and did not change much with hydration. He was anemic on admission and had a normal hemoglobin in June 2016. An examination of the peripheral smear showed 3+ jn cells possibly related to the acute renal failure. Assessment and plan: Mr. Torre presented with worsening renal insufficiency and hypertension and, despite fluid replacement and treatment of hypertension, he seems to have worsened. I get the impression he was more responsive when he initially came in and understand that he may of been more responsive this morning. He's had no fever and, despite corticosteroid therapy has had no significant rise in his white blood cell count. I'm not sure that the abnormality seen on the chest x-ray is outside sales account representative of pneumonia and have suggested a CT scan of the chest if his family and you want to pursue the diagnosis. However, he has been debilitated for a long period of time and it seems that he's been getting worse lately. I understand that you're in discussion with his family to determine whether or not to shift his care to symptom management only, perhaps with the help of hospice. I don't see a reason to continue the corticosteroids at this point. He is about 2900 mL ahead in terms of fluid and, if pleural effusions are present, they may be related to fluid overload in the setting of renal failure and cardiomyopathy. He may have significant COPD elated to a long histor of smoking contributing to dyspnea in the setting of concurrent chf. He does have asymmetric swelling of one of his legs and it may be prudent to get a duplex of the lower extremities to look for clots to account for the breathlessness. I don't think a lung scan would be helpful and he clearly cannot have contrast. In reviewing his medical record and examining him, I do think that shifting him to palliative care, especially if he has been in decline in recent years, might be the best approach. Thank you for the opportunity to participate in Mr. Yelitza xiao. at 1819
[2017-02-11] VITALS (8 sets, daily range): BP systolic 116–150; BP diastolic 61–73
--- NOTE | 2017-02-11 07:49 | ACUTE CARE PROGRESS NOTE (QUA) ---
Progress Notes Subjective Date 02/11/17 Time 0741 Note 81 yo WM in bed eating breakfast in NAD. Breathing better. Son relates no respiratory events overnight. Objective Findings Last VS-Temp:97.9 B/P:150/66 Pulse:93 Resp:22 SaO2:93 ROOM AIR Last weight lbs:185 oz:7 K.113 Method:Bed Scales Exam General appearance: alert, awake, no acute distress Cardiovascular: regular rate & rhythm Respiratory: diminished breath sounds, rhonchi Extremities: moves all, improving edema Neuro: alert, intact Reviewed: medications, vital signs, lab results Assessment/Plan Problem List 1. Pneumonia Status: Acute 2. Uncontrolled hypertension Status: Acute Assessment/Plan: BP improved on current meds. 3. Acute renal failure Status: Acute Assessment/Plan: Stable. Will need to keep BUN/Cr around current levels to keep patient from CHF. Qualifiers: Acute renal failure type: unspecified Qualified Code: N17.9 - Acute kidney failure, unspecified 4. Hyperkalemia 5. Benign prostatic hypertrophy Status: Chronic 6. Near syncope Status: Acute 7. Depression Status: Chronic 8. COPD Status: Chronic 9. History of CVA with residual deficit Status: Chronic 10. Anemia 11. Constipation Status: Acute 12. Abdominal pain Status: Chronic 13. Cardiomyopathy Assessment/Plan: EF 35% with multiple wall motion abnormalities. Unable to use LINDSAY/ARB due to CKD but using Isordil and hydralazine. On clonidine but would consider adding coreg once respiratory status improves without further rhonchi/wheezing. Patient condition Guarded Plan: continue current care This inpt stay is expected to cross 2 MNs from start of care Yes Antibiotic Stewardship (2) Infxn that will respond? Yes Right drug,dose,and route? Yes More targeted antbx? No at 0834
--- NOTE | 2017-02-11 08:01 | ACUTE CARE PROGRESS NOTE (QUA) ---
Progress Notes Subjective Date 02/11/17 Time 0758 Note Pt had a good night. No breathing events. Denies any pain. Ate a good breakfast. Objective Findings Last VS-Temp:97.9 B/P:150/66 Pulse:93 Resp:22 SaO2:93 ROOM AIR Last weight lbs:185 oz:7 K.113 Method:Bed Scales Exam General appearance: alert, awake, no acute distress Cardiovascular: regular rate & rhythm Respiratory: diminished breath sounds, no wheezing ABD: non-distended, normal bowel sounds, no rebound, soft, no tenderness, no guarding Extremities: no peripheral edema Assessment/Plan Problem List 1. Pneumonia Status: Acute 2. Uncontrolled hypertension Status: Acute 3. Acute renal failure Status: Acute 4. Hyperkalemia 5. Benign prostatic hypertrophy Status: Chronic 6. Near syncope Status: Acute 7. Depression Status: Chronic 8. COPD Status: Chronic 9. History of CVA with residual deficit Status: Chronic 10. Anemia 11. Constipation Status: Acute 12. Abdominal pain Status: Chronic 13. Cardiomyopathy Plan: According to care management notes, patient's family has decided to go home with hospice. Will possibly discharge later on this week. Dr. Bernal's note appreciated. This inpt stay is expected to cross 2 MNs from start of care Yes (Felipa Garcia) Subjective Date 02/11/17 Time 0923 Assessment/Plan Problem List 1. Pneumonia Status: Acute 2. Uncontrolled hypertension Status: Acute 3. Acute renal failure Status: Acute 4. Hyperkalemia 5. Benign prostatic hypertrophy Status: Chronic 6. Near syncope Status: Acute 7. Depression Status: Chronic 8. COPD Status: Chronic 9. History of CVA with residual deficit Status: Chronic 10. Anemia 11. Constipation Status: Acute 12. Abdominal pain Status: Chronic 13. Cardiomyopathy Plan: Pt seen and examined. Appears stable. WIll switch to po antibiotics. Discussed Dr. Bernal's consult recommendations with family but they do not wish to pursue CT scan or any invasive procedures. Family to meet with Faheem today. Plan discharge for Thursday. (Param VILLAR,Roxana Fontaine) Antibiotic Stewardship (2) Infxn that will respond? Yes Right drug,dose,and route? Yes More targeted antbx? No (Felipa Garcia) at 0800 at 0901
[2017-02-12] VITALS (8 sets, daily range): BP systolic 111–150; BP diastolic 58–72
--- NOTE | 2017-02-12 08:07 | ACUTE CARE PROGRESS NOTE (QUA) ---
Progress Notes Subjective Date 02/12/17 Time 0804 Note Pt's states patient has done well other than a "spell" he had yesterday. She states that all at once he became very pale and his eyes seemed to glass over. He stated he hurt but could not tell them where. She states he was like this for about an hour and it resolved. His breathing has been normal. He did eat a good breakfast and he slept well last night. She is also concerned about the patient's blood pressure. She states it has been running lower than normal and she is concerned that it may be too low. It was 116/60 this am. Objective Findings Last VS-Temp:97.8 B/P:111/62 Pulse:94 Resp:20 SaO2:95 ROOM AIR Last weight lbs:186 oz:2 K.425 Method:Bed Scales Exam General appearance: sleeping Cardiovascular: regular rate & rhythm Respiratory: clear to auscultation ABD: non-distended, normal bowel sounds, no rebound, soft, no tenderness, no guarding Extremities: no peripheral edema, less swelling in hands Assessment/Plan Problem List 1. Pneumonia Status: Acute 2. Uncontrolled hypertension Status: Acute 3. Acute renal failure Status: Acute 4. Hyperkalemia 5. Benign prostatic hypertrophy Status: Chronic 6. Near syncope Status: Acute 7. Depression Status: Chronic 8. COPD Status: Chronic 9. History of CVA with residual deficit Status: Chronic 10. Anemia 11. Constipation Status: Acute 12. Abdominal pain Status: Chronic 13. Cardiomyopathy Plan: Hospice has been consulted and patient should discharged tomorrow home with hospice. Will discuss patient's BP with Dr. Virgen. This inpt stay is expected to cross 2 MNs from start of care Yes (Felipa Garcia) Subjective Date 02/12/17 Time 0825 Assessment/Plan Problem List 1. Pneumonia Status: Acute 2. Uncontrolled hypertension Status: Acute 3. Acute renal failure Status: Acute 4. Hyperkalemia 5. Benign prostatic hypertrophy Status: Chronic 6. Near syncope Status: Acute 7. Depression Status: Chronic 8. COPD Status: Chronic 9. History of CVA with residual deficit Status: Chronic 10. Anemia 11. Constipation Status: Acute 12. Abdominal pain Status: Chronic 13. Cardiomyopathy Plan: Pt seen and examined. Hospice is arranging equipment at home today with plans for discharge tomorrow. (Roxana Virgen MD) Antibiotic Stewardship (2) Infxn that will respond? Yes Right drug,dose,and route? Yes More targeted antbx? No (Felipa Garcia) Current Culture Results Microbiology 02/09 0640 URINE CC: Urine Culture - COMP 02/05 1415 BLOOD: Anaerobic Blood Culture - COMP 02/05 1415 BLOOD: Aerobic Blood Culture - COMP (Roxana Virgen MD) at 0807 at 0826
[2017-02-13 00:27] VITALS: BP 107/49
[2017-02-13 04:27] VITALS: BP 133/63
[2017-02-13 08:01] VITALS: BP 127/63
--- NOTE | 2017-02-13 08:10 | ACUTE CARE PROGRESS NOTE (QUA) ---
Progress Notes Subjective Date 02/13/17 Time 0806 Note Pt has no new complaints today. His and son have a lot of questions about hospice and the equipment that will be at their home. Patient denies any pain, slept well, and ate a good breakfast. Objective Findings Last VS-Temp:97.9 B/P:127/63 Pulse:92 Resp:20 SaO2:94 ROOM AIR Last weight lbs:182 oz:2 K.611 Method:Bed Scales Exam General appearance: alert, awake, no acute distress Cardiovascular: regular rate & rhythm Respiratory: faint wheezes ABD: non-distended, normal bowel sounds, no rebound, soft, no tenderness, no guarding Extremities: no peripheral edema Assessment/Plan Problem List 1. Pneumonia Status: Acute 2. Uncontrolled hypertension Status: Acute 3. Acute renal failure Status: Acute 4. Hyperkalemia 5. Benign prostatic hypertrophy Status: Chronic 6. Near syncope Status: Acute 7. Depression Status: Chronic 8. COPD Status: Chronic 9. History of CVA with residual deficit Status: Chronic 10. Anemia 11. Constipation Status: Acute 12. Abdominal pain Status: Chronic 13. Cardiomyopathy Plan: Pt stable to be discharged home today with hospice. This inpt stay is expected to cross 2 MNs from start of care No (Felipa Garcia) Subjective Date 02/13/17 Assessment/Plan Problem List 1. Pneumonia Status: Acute 2. Uncontrolled hypertension Status: Acute 3. Acute renal failure Status: Acute 4. Hyperkalemia 5. Benign prostatic hypertrophy Status: Chronic 6. Near syncope Status: Acute 7. Depression Status: Chronic 8. COPD Status: Chronic 9. History of CVA with residual deficit Status: Chronic 10. Anemia 11. Constipation Status: Acute 12. Abdominal pain Status: Chronic 13. Cardiomyopathy Plan: Concur with plan for discharge with Hospice. All questions answered and new medications reviewed. Will transport via ambulance (Roxana Virgen MD) Antibiotic Stewardship (2) Infxn that will respond? Yes Right drug,dose,and route? Yes More targeted antbx? No (Felipa Garcia) at 0810 at 1327
[2017-02-13] MEDS ORDERED: HYDRALAZINE HCL25 M1 PO (08:54)
[2017-02-13] MEDS ORDERED: CEFTIN 250MG T250 MG PO (08:55)
[2017-02-13] MEDS ORDERED: ATIVAN0.5 MG PO (08:56)
[2017-02-13] MEDS ORDERED: CLONIDINE HCL0.1 M1 PO (08:57)
[2017-02-13] MEDS ORDERED: ISOSORBIDE DINI20 MG PO (08:57)
[2017-02-13 10:44] VITALS: BP 127/63
[2017-02-13 12:18] VITALS: BP 136/71
[2017-02-13 12:47] VITALS: BP 136/71
--- NOTE | 2017-02-19 13:45 | DISCHARGE SUMMARY STANDARD ---
Discharge Summary (FCA2) Date of admission: 02/04/17 Date of discharge: 02/13/17 Problem List: 1. Pneumonia 2. Uncontrolled hypertension 3. Acute renal failure 4. Hyperkalemia 5. Benign prostatic hypertrophy 6. Near syncope 7. Depression 8. COPD 9. History of CVA with residual deficit 10. Anemia 11. Constipation 12. Abdominal pain 13. Cardiomyopathy History of present illness: Mr Torre is an 81 year old male with a history of COPD, S/P left CVA with residual right sided weakness and dysarthria who was admitted to [facility] with symptomatic uncontrolled HTN and acute renal failure. He was seen in the office of [facility] on 01/30/17 with elevated BP and metoprolol was added to his HTN med regime. Lisinopril, Amlodipine and Clonidine were continued. Lab results reported 02/03/14 revealed a K+ of 5.9, BUN 67, creatinine 3.4 and TSH of 5.4. PSA was 7.21 (was 8.5 07/25/16). Dr. Virgen contacted the patient's and arranged for admission for further evaluation and treatment. Patient had denied CP and SOB. The patient's , who is a good historian, communicated the details of his problems. He had not been eating or drinking as well but he had had no nausea/vomiting/diarrhea. Bp had been elevated and she had been giving him the prn clonidine once or twice daily. He had been voiding as usual in his depends. He had had continuation of his "spells" where he slumped over like he was going to pass out with SOB. When asked if he was hurting at these times, he indicated that he was hurting all over. The spells were more sudden and occurred with exertion. He did not have these every day. He was evaluated for the spells 4 years ago at [facility] when the family thought he was having another stroke. Studies at that time did not indicate strokes, but did not indicate a specific causative factor. Exam on admission: General appearance: normal appearance, alert, no acute distress, well-developed , well-nourished Eyes: anicteric, pupils reactive to light ENT: mucous membranes moist, pharynx normal Neck: no carotid bruit, supple, lymphadenopathy (absent), thyroid (normal) Cardiovascular: normal sinus rhythm, regular rate & rhythm, no murmur, edema, irregularly irregular (right ankle) Respiratory: clear to auscultation (bilat anterior and posterior), good air movement ABD: non-distended, soft, no tenderness, no guarding, bowel sounds present, palpable liver Extremities: edema of right ankle; no palpable cords or masses in right leg; left leg without edema Neuro: alert, oriented, masklike facies, other, speech is slow and soft; mostly yes and no answers or nods head; slight left facial droop Hospital Course: The patient's chest x-ray showed mild cardiomegaly with a torturous aorta along with RIGHT basilar atelectasis or infiltrate. He was started on IV fluids and blood pressure medications were ordered. A renal ultrasound and carotid studies were ordered as well. Cardiology was consulted. His carotid ultrasound showed 20 -49 percent stenosis of the bilateral carotid arteries. The renal ultrasound showed bilateral renal cortical thinning. Cardiology saw the patient and started him on hydralazine, Isordil, and clonidine. Cardiology did order an echo and it showed a mildly enlarged LEFT atrium, mildly dilated LEFT ventricle, mild concentric LEFT ventricular hypertrophy, and an ejection fraction reduced at 35 percent. His blood pressure improved with the changes in his blood pressure medications. He had a repeat chest x-ray on 02/05/17 and was started on neb treatments due to labored breathing and wheezing. The repeat chest x-ray showed a RIGHT lower lobe pneumonia. He was therefore started on antibiotics. His blood pressure improved but his renal function did not. He continued having episodes of dyspnea and the family was concerned this may be due to anxiety, therefore prn Ativan was ordered. When he had another "breathing spell," he was given the Ativan and the symptoms resolved. Dr. Virgen felt these episodes of respiratory distress were not clear but consistently occurred with activity. He felt they were likely related to a degree of congestive heart failure, chronic obstructive pulmonary disease, and his pneumonia. He did add some steroids. His H and H did drop but then stabilized. Anemia studies were ordered. He also had a repeat chest x-ray which showed worsening pneumonia. His renal function began to decline and he retained more fluid. Dr. Virgen had a long discussion with the patient's and son regarding his worsening prognosis. He was not a candidate for cardiac intervention and the family had decided against any form of dialysis. He did offer to transfer to a tertiary facility, but with no plans for invasive procedures, the family preferred to consult hospice. Dr. Bernal did see the patient in consultation and he didn't feel any need to continue corticosteroids. He felt that the patient could have a CT scan of his chest, however if he was going to go home with hospice, this may not be necessary. The patient was stable to be discharged home on 02/13/17 on hydralazine, isosorbide dinitrate, lorazepam, clonidine, and Ceftin for his pneumonia. He will be followed by hospice. Discharge medications: Stop taking the following medications: Lisinopril (Lisinopril) 20 MG TABLET ORAL EVERY 12 HOURS Qty = 90 Clonidine Hydrochloride (Clonidine 0.2MG Tab) 0.2 MG TABLET ORAL EVERY 6 HOURS NEEDED as needed for PRN SBP>180 Metoprolol Succinate (Metoprolol Succinate XL) 50 MG TAB.ER.24H ORAL DAILY Qty = 30 Amlodipine Besylate (Amlodipine) 5 MG TABLET ORAL DAILY Amlodipine Besylate (Amlodipine) 5 MG TABLET ORAL DAILY Continue taking these medications: Aspirin (Adult Low Dose Aspirin EC) 81 MG TABLET. 81 MILLIGRAM ORAL DAILY LEVOTHYROXINE SOD (Levothyroxine 0.05MG) 50 MCG TABLET 0.05 MILLIGRAM ORAL DAILY CLOPIDOGREL BISULFATE (Clopidogrel) 75 MG TABLET 75 MILLIGRAM ORAL DAILY Qty = 90 L. Acidophilus/L. Rhamnosus (Probiotic 15 Billion Cell Cap) 15 BILLION CELL CAPSULE 1 EACH ORAL DAILY Mirabegron (Myrbetriq) 25 MG TAB.ER.24H 25 MILLIGRAM ORAL MoWeFr Qty = 30 Psyllium Husk (Metamucil) 0.4 GRAM CAPSULE 0.4 GRAM ORAL DAILY Mirabegron (Myrbetriq) 25 MG TAB.ER.24H 25 MILLIGRAM ORAL 3 TIMES WEEK DESIPRAMINE HCL (Desipramine HCl) 25 MG TABLET 25 MILLIGRAM ORAL 3X WEEK Qty = 60 Start taking the following new medications: Hydralazine Hcl (Hydralazine 25MG Tab) 25 MG TABLET 50 MILLIGRAM ORAL Q8H Qty = 90 Refills = 2 Isosorbide Dinitrate (Isosorbide Dinitrate 20MG) 20 MG TABLET 40 MILLIGRAM ORAL Q8H Qty = 90 Refills = 2 CEFUROXIME AXETIL (CEFTIN 250MG TAB) 250 MG TABLET 500 MILLIGRAM ORAL TWICE A DAY Qty = 6 No Refills Lorazepam (Ativan 0.5MG) 0.5 MG TABLET 0.25 MILLIGRAM ORAL EVERY 6 HOURS NEEDED as needed for ANXIETY Qty = 30 No Refills CLONIDINE HCL (Clonidine 0.1MG) 0.1 MG TABLET 0.1 MILLIGRAM ORAL TWICE A DAY Qty = 60 Refills = 2 Disposition: F/U with: Roxana Virgen MD Follow up: N/A Activity: Cont Current activity Diet: Continue same diet Discharge to: HOME Agency needed? Y Specify: HOSPICE at 1349
== END 2017-02-13 12:45 | disposition hospice, home (50) | DRG 194 ==
LOC: 2ND 07:55
PROVIDERS: Family Medicine
DX: J18.9 Pneumonia, unspecified organism (principal); I69.351 Hemiplegia and hemiparesis following cerebral infarction affecting right dominant side; I11.9 Hypertensive heart disease without heart failure; I13.10 Hypertensive heart and chronic kidney disease without heart failure, with stage 1 through stage 4 chronic kidney disease, or unspecified chronic kidney disease; J44.9 Chronic obstructive pulmonary disease, unspecified; I69.322 Dysarthria following cerebral infarction; Z87.891 Personal history of nicotine dependence; N40.0 Benign prostatic hyperplasia without lower urinary tract symptoms; N18.9 Chronic kidney disease, unspecified; E87.5 Hyperkalemia
CPT/HCPCS: J0456

== ENCOUNTER 2017-06-05 13:18 | Inpatient (IN) | payer OTHER, MEDICARE ==
[~2017-06-05] VITALS: Ht 172.7 cm; Wt 62.8 kg
[~2017-06-05 13:18] MED LIST changes: +AMLO5TAB PO; +ATIVAN0.5 MG PO; +BISA-LAX5 MG PO; +CEFTIN 250MG T250 MG PO; +CLONIDINE HCL0.1 M1 PO; +CLONIDINE0.1 M1 PO; +DESIPRAMINE HCL25 MG PO; +HYDRALAZINE HCL25 M1 PO; +ISOSORBIDE DINI20 MG PO; +LACTULOSE10 GM/15 M PO; +LINZESS145 MCG PO; +LORAZEPAM0.5 MG/TAB PO; +METAMUCIL0.4 GM PO; +METOPROLOL SUCC50 M4 PO; +MORPHINE SUL20 MG/ML PO; +MYRBETRIQ25 MG PO; +PROBIOTIC1 EAC5 PO; +SENNA LAXATIVE8.6 MG PO; +STOOL SOFTENER240 M2 PO
[2017-06-05 13:20] VITALS: BP 154/89
--- NOTE | 2017-06-05 13:35 | Emergency Room Report ---
History of Present Illness Time Seen by [id number] Presenting Problem in Triage Pt arrived: Presenting Problem: Onset of symptoms date/time:/ or onset unknown for: Treatment Prior to Arrival: [employer] Provided by: Sepsis Risk Assessment: Temp: B/P: MAP: Pulse: Resp: Recent fever? Clinical Suspician of Infection? Mental Status: Sepsis Risk: Have you (or family members/close friends) recently traveled outside the [place]? If Yes, where/when: Have you had exposure to infectious disease within the past month? TB? Other? 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 He is no longer drooling. He can now answer yes/no questions. No fever or vomiting. 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 EMS states FSBS 201 in the field. Not diabetic. ALLERGIES Coded Allergies: No Known Allergies (05/09/17) Home Medications Active Scripts Hydralazine Hcl (Hydralazine 25MG Tab) 50 MG PO Q8H #90 TAB Ref 2 Prov: 02/13/17 Isosorbide Dinitrate (Isosorbide Dinitrate 20MG) 40 MG PO Q8H #90 TAB Ref 2 Prov: 02/13/17 Reported Medications Mirabegron (Myrbetriq) 25 MG PO MoWeFr #30 TAB CLONIDINE HCL (Clonidine) 0.1 MG PO TID Lorazepam (Lorazepam 0.5MG) 0.5 MG PO Q6HP PRN ANXIETY Aspirin (Adult Low Dose Aspirin EC) 81 MG PO DAILY LEVOTHYROXINE SOD (Levothyroxine 0.05MG) 0.05 MG PO DAILY CLOPIDOGREL BISULFATE (Clopidogrel) 75 MG PO DAILY #90 TAB DESIPRAMINE HCL (Desipramine HCl) 1-2 TAB PO DAILY #60 TAB Morphine Sulfate (Morphine Sulf Oral Conc) 0.5 ML PO Q4HP PRN BREATHING/ PAIN Docusate Calcium (Stool Softener) 240 MG PO DAILYP PRN CONSTIPATION Senna Pod (Senna Laxative) 2 TAB PO DAILY Bisacodyl (Bisa-Lax) 5 MG PO Q3D Bacillus Coagulans (Probiotic) 1 EACH PO DAILY Lactulose (Lactulose) 30 ML PO DAILYP PRN CONSTIPATION Linaclotide (Linzess 145MCG) 145 MCG PO DAILY History Medical History General CAD? No Angina: No VT: No Hypertension? Yes Hyperlipidemia? No CHF? No DVT? No PE? No COPD? No Asthma? No Anemia? No GERD? No Gastric ulcers? Yes GI Bleed? No Hernia? No Thyroid Problems? Yes Hypothyroidism? Yes CVA? Yes Seizures? No Diabetes? No Renal Insuffiency? Yes End Stage Renal Disease? No UTI? Yes Stones? No BPH? Yes GB Disease: No Nephritic Syndrome? No Asplenia? No Hepatitis? No Sickle Cell Disease? No Arthritis? No Migraines? No Cataracts? No Glaucoma? No MRSA? No HIV? No TB? No Anxiety? No Depression? Yes Cancer? No Additional hx: AAA Immunization Hx DT/Tetanus Unknown Flu Refused Pneumonia Refuses Surgical Hx Previous Surgery?Y DISCECTOMY 1968 KNEE ARTHROSCOPY DEVIATED SEPTUM Family History Family Hx Diabetes Yes CAD Yes Hypertension No Hyperlipidemia No Cancer No TB No Social History Smoking Hx Packs/day N/A Alcohol Alcohol: No Review of Systems All Other Systems Reviewed and Negative Psychiatric/Neurological see HPI, pre-existing deficit Physical Exam Vital Signs Vital Signs Date Time Temp Pulse Resp B/P Pulse O2 O2 Flow FiO2 Ox Delivery Rate 06/05 1320 98.2 67 18 154/89 97 2 General Appearance normal appearance, WD/WN, no apparent distress Eye Exam - bilateral eye normal exam, bilateral eye PERRL Neck normal inspection, non-tender, supple, full range of motion Respiratory Status Yes: trachea midline, chest symmetrical, non tender chest. No: respiratory distress, tender on palpation, use of accessory muscles, pain on inspiration, pain on expiration, productive cough, non productive cough. Lung Sounds bilateral: normal breath sounds, lungs clear. Cardiovascular normal exam, regular rate/rhythm, no peripheral edema, no gallop, no JVD, no murmur, no rub, normal peripheral pulses Peripheral Pulses Pulses normal Yes Gastrointestinal normal bowel sounds, non tender, soft, no organomegaly, no pulsatile mass, no guarding, no rebound Extremities non-tender (R hemiparesis) Strength 1 Upper Ext (R), 1 Lower Ext (R), 4 Upper Ext (L), 4 Lower Ext (L) Neurologic Challenging to obtain accurate NIHSS due to baseline expressive aphasia and baseline R hemiparesis. No left sided findings; he follows commands, answers yes/no questions, seems alert; no drooling; no tremor; normal plantar reflex. Other than seeming a little "less attentive" is at baseline per . Glascow Coma Scale Glascow Coma Scale Response Value EYE response: 4 Spontaneously 4 MOTOR response: 6 OBEYS 6 VERBAL response: 5 Oriented & Converses 5 Total 15 Reflexes Reflexes normal No DTR 1+ ankle (R), 3+ ankle (L) Skin intact, normal color, warm/dry Medical Decision Making LABS/Meds/Orders Pt receiving controlled substance in ED? No Results/Orders Laboratory Tests 06/05/17 1310: Sodium 137, Potassium 3.5, Chloride 100, Carbon Dioxide 27, BUN 25 H, Creatinine 2.3 H, Estimated Creat Clear 23 L, Estimated GFR (MDRD) 27, Glucose 181 H, Calcium 8.4 L, Total Bilirubin 0.3, AST 18, ALT 15, Alkaline Phosphatase 91, Creatine Kinase 61, CK-MB (CK-2) Rel Index 2.8, CK and CKMB Interp 1.7, Troponin I 0.04, Total Protein 7.2, Albumin 3.7, Globulin 3.5 H, Albumin/Globulin Ratio 1.1, WBC 8.9, RBC 4.06 L, Hgb 9.5 L, Hct 31.8 L, MCV 78.2 L, RDW 15.8, Plt Count 372, MPV 7.3 L, Gran % 64.7, Gran # 5.8, Lymphocytes % 21.9, Monocytes % 6.0, Eosinophils % 6.5, Basophils % 0.8, Lymphocytes # 1.9, Monocytes # 0.5, Eosinophils # 0.6 H, Basophils # 0.1, PUBS MCHC 29.8 L, MCH 23.3 L Current Medication Orders Sig/Jane Start time Last Medication Dose Route Stop Time Status Admin Ceftriaxone Sodium 1 GM ONCE ONE 06/05 1500 AC Sodium Chloride 50 ML IV 06/05 1529 Sodium Chloride 1,000 ML .Q10H 06/05 1430 AC IV 06/06 0218 Sodium Chloride 10 ML PRN PRN 06/05 1430 AC IV 06/06 1418 Orders Procedure Date/time Status DIET-NOTHING BY MOUTH 06/05 D Active Decision to admit 06/05 1455 Active LACTIC ACID 06/05 1453 Active 12 LEAD EKG-ZOESON (INITIAL) 06/05 1330 Active ELECTROCARDIOGRAM REQUEST 06/[address] HEAD REQ 06/05 1328 Complete CHEST-PORTABLE 06/05 1328 Active CULTURE, BLOOD 06/05 1328 Active URINALYSIS/COMPLETE 06/05 1328 Active CBC WITH AUTO DIFF 06/05 1328 Complete CARDIAC ENZYMES 06/05 132 Complete CHEM 12 PROFILE 06/05 1328 Complete CM/EKG CM/EKG EKG rate, NSR, rhythm, no evid. of ischemic chgs (nonspecific ST changes), no ectopy, normal QRS, normal NJ, normal EKG (NSR 67; QTc 486) XRAY/CT/US XRAY/CT/US XRAY chest XR interpretation by reviewed by me, discussed w/radiologist Xray Results RUL infiltrate; R pleural effusion and CM/borderline enlarged aorta seen previously; d/w Dr. Yates CT head CT interpretation by reviewed by me Time results known: 1430 CT Results normal/NAD (atrophy neg acute) Consult MD Physician Consult Time Called 1450 Reason Admission Progress ED Progress Notes Date 06/05/17 Time 1502 Comment Neurologically, patient at baseline; it is unknown if he had a cardiac dysrhythmia as the etiology of his near syncope; he has a hx of recent VT and will need telemetry plus serial troponins. Radiologist has seen an infiltrate RUL, and he will be treated for this as well. Departure Departure Time of Disposition 1453 Disposition Still a Patient Clinical Impression Primary Impression: Right upper lobe pneumonia Qualifiers: Pneumonia type: due to unspecified organism Qualified Code: J18.1 - Lobar pneumonia, unspecified organism Secondary Impressions: Near syncope Condition STABLE Referrals Roxana Virgen MD (Family) ED Critical Care Critical Care No
[2017-06-05 13:39] LABS: LYMPH # 1.9 K/mm3 (0.7-4.5); LYMPH % 21.9 % (10-50)
--- OUTSIDE RECORDS SUMMARY | 2017-06-05 13:45 | External Medical Summary Rpt ---
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
--- OUTSIDE RECORDS SUMMARY | 2017-06-05 13:45 | External Medical Summary Rpt ---
Demographics Preferred Language Persian Marital Status Unknown Moravian Affiliation Unknown Race Unknown Ethnic Group Unknown Author Author HALEIGH Address Unknown Phone Immunization No patient found.
--- OUTSIDE RECORDS SUMMARY | 2017-06-05 13:45 | External Medical Summary Rpt ---
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
--- OUTSIDE RECORDS SUMMARY | 2017-06-05 13:45 | External Medical Summary Rpt ---
Demographics Preferred Language Maltese Marital Status Unknown Cheondoism Affiliation Unknown Race Unknown Ethnic Group Unknown Author Author HALEIGH Address Unknown Phone Immunization No patient found.
--- OUTSIDE RECORDS SUMMARY | 2017-06-05 13:46 | External Medical Summary Rpt ---
Author Author VINCENT Basurto, [employer] Address Unknown Phone Unavailable Results CBC W Auto Differential panel in Blood Observa Value Referen Units Interpr Notes Date tion ce etation Range Basophils 0 - 0.2 K/MM3 Normal No May 11 inform2016 [#/volume on in 10:42 AM ] in source Blood by data Automated count Basophils 0.1 - 2.0 % Normal No May 11 / inform2016 leukocyte on in 10:42 AM s in source Blood by data Automated count Eosinophi 0.0 - 0.4 K/mm3 Normal No May 11 ls 2016 [#/volume on in 10:42 AM ] in source Blood by data Automated count Eosinophi 0.1 - % Normal No May 11 ls/100 12.0 inform2016 leukocyte on in 10:42 AM s in source Blood by data Automated count Granulocy 1.3 - 8.0 K/mm3 Normal No May 11 ita 2016 [#/volume on in 10:42 AM ] in source Blood by data Automated count Granulocy 37.0 - % Normal No May 11 ita/100 80.0 2016 leukocyte on in 10:42 AM s in source Blood by data Automated count Hematocri 42.0 - % Low No May 11 t [Volume 52.0 ati 2016 on in 10:42 AM Fraction] source of Blood data Hemoglobi 14.1 - g/dL Low No May 11 n 18.0 2016 [Mass/vol on in 10:42 AM ume] in source Blood data Lymphocyt 0.7 - 4.5 K/mm3 Normal No May 11 es inform2016 [#/volume on in 10:42 AM ] in source Unspecifi data ed specimen by Automated count Lymphocyt 10 - 50 % Normal No May 11 es 2016 [#/volume on in 10:42 AM ] in source Unspecifi data ed specimen by Automated count Erythrocy 27 - 31.2 pg Low No May 11 te mean 2016 corpuscul on in 10:42 AM ar source hemoglobi data n [Entitic mass] Erythrocy 31.8 - g/dl Low No May 11 te mean 35.4 2016 corpuscul on in 10:42 AM ar source hemoglobi data n concentra tion [Mass/vol ume] by Automated count Erythrocy 82.2 - fl Low No May 11 te mean 97.8 2016 corpuscul on in 10:42 AM ar volume source [Entitic data volume] by Automated count Monocytes 0.1 - 1.0 K/mm3 Normal No May 11 inform2016 [#/volume on in 10:42 AM ] in source Blood by data Automated count Monocytes 1.7 - 9.3 % Normal No May 11 /100 2016 leukocyte on in 10:42 AM s in source Blood by data Automated count Platelet 7.4 - fl Low No May 11 mean 10.4 2016 volume on in 10:42 AM [Entitic source volume] data in Blood by Automated count Platelets 142 - 424 K/mm3 Normal No May 112016 [#/volume on in 10:42 AM ] in source Blood data Erythrocy 4.6 - 6.2 M/mm3 Low No May 11 ita inform2016 [#/volume on in 10:42 AM ] in source Amniotic data fluid Erythrocy 11.5 - % Normal No May 11 te 17.5 2016 distribut on in 10:42 AM ion width source [Entitic data volume] by Automated count Leukocyte 4.8 - K/MM3 No May 11 s 10.8 informati informati 2016 [#/volume on in on in 10:42 AM ] in source source Blood data data Basic metabolic panel in Blood Observa Value Referen Units Interpr Notes Date tion ce etation Range Urea 7 - 18 mg/dL High No May 10 nitrogen informati 2016 6:20 [Mass/vol on in AM ume] in source Serum or data Plasma Calcium 8.5 - mg/dL Low RESULTS May 10 [Mass/vol 10.1 RECHECKED 2016 6:20 ume] in AM Serum or VERIFIED Plasma Chloride 98 - 107 mmoL/L Normal No May 10 [Moles/vo informati 2016 6:20 lume] in on in AM Serum or source Plasma data Carbon 21.0 - mmoL/L Normal No May 10 dioxide, 32.0 informati 2016 6:20 total on in AM [Moles/vo source lume] in data Serum or Plasma Creatinin 0.70 - mg/dL High No May 10 e 1.30 informati 2016 6:20 [Mass/vol on in AM ume] in source Serum or data Plasma Creatinin 50 - 200 ML/MIN Low No May 10 e renal informati 2016 6:20 clearance on in AM source predicted data by Cockcroft -Gault formula Estimated >60 ML/MIN No REFERENCE May 10 informati RANGE: 2017 6:20 glomerula on in >60 AM r source ML/MIN/1. filtratio data 73 SQUARE n rate METERSIf (GF this patient is -A merican, then multiply theresult by 1.210. Glucose 74 - 106 mg/dL Normal No May 10 [Mass/vol informati 2016 6:20 ume] in on in AM Serum or source Plasma data Potassium 3.5 - 5.1 mmoL/L High DIFFICULT May 10 2017 6:20 [Moles/vo VENIPUNCT AM lume] in URE, Serum or SLIGHT Plasma HEMOLYSIS Sodium 136 - 145 mmoL/L Normal No May 10 [Moles/vo informati 2016 6:20 lume] in on in AM Serum or source Plasma data CBC W Auto Differential panel in Blood Observa Value Referen Units Interpr Notes Date tion ce etation Range Basophils 0 - 0.2 K/MM3 Normal No May 10 inform2016 6:20 [#/volume on in AM ] in source Blood by data Automated count Basophils 0.1 - 2.0 % Normal No May 10 informati 2016 6:20 leukocyte on in AM s in source Blood by data Automated count Eosinophi 0.0 - 0.4 K/mm3 High No May 10 ls informati 2016 6:20 [#/volume on in AM ] in source Blood by data Automated count Eosinophi 0.1 - % Normal No May 10 ls/100 12.0 informati 2016 6:20 leukocyte on in AM s in source Blood by data Automated count Granulocy 1.3 - 8.0 K/mm3 Normal No May 10 ita informati 2016 6:20 [#/volume on in AM ] in source Blood by data Automated count Granulocy 37.0 - % Normal No May 10 ita/100 80.0 informati 2016 6:20 leukocyte on in AM s in source Blood by data Automated count Hematocri 42.0 - % Low No May 10 t [Volume 52.0 informati 2017 6:20 on in AM Fraction] source of Blood data Hemoglobi 14.1 - g/dL Low alert May 10 n 18.0 2016 6:20 [Mass/vol CRITICAL AM ume] in RESULTS Blood RESU LTS CALLED TO: Suman RODRIGUEZ RN 05/10/17 0709 Staci Stuart hn Lymphocyt 0.7 - 4.5 K/mm3 Normal No May 10 es informati 2016 6:20 [#/volume on in AM ] in source Unspecifi data ed specimen by Automated count Lymphocyt 10 - 50 % Normal No May 10 es informati 2017 6:20 [#/volume on in AM ] in source Unspecifi data ed specimen by Automated count Erythrocy 27 - 31.2 pg Low No May 10 te mean informati 2016 6:20 corpuscul on in AM ar source hemoglobi data n [Entitic mass] Erythrocy 31.8 - g/dl Low No May 10 te mean 35.4 informati 2017 6:20 corpuscul on in AM ar source hemoglobi data n concentra tion [Mass/vol ume] by Automated count Erythrocy 82.2 - fl Low No May 10 te mean 97.8 informati 2017 6:20 corpuscul on in AM ar volume source [Entitic data volume] by Automated count Monocytes 0.1 - 1.0 K/mm3 Normal No May 10 informati 2017 6:20 [#/volume on in AM ] in source Blood by data Automated count Monocytes 1.7 - 9.3 % Normal No May 10 /100 informati 2017 6:20 leukocyte on in AM s in source Blood by data Automated count Platelet 7.4 - fl Normal No May 10 mean 10.4 informati 2017 6:20 volume on in AM [Entitic source volume] data in Blood by Automated count Platelets 142 - 424 K/mm3 Normal No May 10 informati 2017 6:20 [#/volume on in AM ] in source Blood data Erythrocy 4.6 - 6.2 M/mm3 Low No May 10 ita informati 2017 6:20 [#/volume on in AM ] in source Amniotic data fluid Erythrocy 11.5 - % Normal No May 10 te 17.5 informati 2016 6:20 distribut on in AM ion width source [Entitic data volume] by Automated count Leukocyte 4.8 - K/MM3 Normal No May 10 s 10.8 informati 2017 6:20 [#/volume on in AM ] in source Blood data Thyroxine (T4) [Mass/volume] in Serum or Plasma Observa Value Referen Units Interpr Notes Date tion ce etation Range Thyroxine 4.7 - ug/dl Normal No May 09 (T4) 13.3 informati 2016 4:51 [Mass/vol on in AM ume] in source Serum or data Plasma Thyrotropin [Units/volume] in Serum or Plasma Observa Value Referen Units Interpr Notes Date tion ce etation Range Thyrotrop 0.358 - uIU/ml Normal No May 09 in 3.740 informati 2016 4:51 [Units/vo on in AM lume] in source Serum or data Plasma Amylase [Enzymatic activity/volume] in Serum or Plasma Observa Value Referen Units Interpr Notes Date tion ce etation Range Amylase 25 - 115 U/L Normal No May 09 [Enzymati informati 2016 4:51 c on in AM activity/ source volume] data in Serum or Plasma Comprehensive metabolic 2000 panel in Serum or Plasma Observa Value Referen Units Interpr Notes Date tion ce etation Range Albumin/G 1.1 - 1.8 No Low No May 09 lobulin informati informati 2016 4:51 [Mass on in on in AM ratio] in source source Serum or data data Plasma Albumin 3.4 - 5.0 gm/dL Normal No May 09 [Mass/vol informati 2016 4:51 ume] in on in AM Serum or source Plasma data Alkaline 46 - 116 U/L Normal No May 09 phosphata informati 2016 4:51 se on in AM [Enzymati source c data activity/ volume] in Serum or Plasma Bilirubin 0.2 - 1.0 mg/dL Normal No May 09 .total informati 2017 4:51 [Mass/vol on in AM ume] in source Serum or data Plasma Urea 7 - 18 mg/dL High No May 09 nitrogen informati 2017 4:51 [Mass/vol on in AM ume] in source Serum or data Plasma Calcium 8.5 - mg/dL Low No May 09 [Mass/vol 10.1 informati 2016 4:51 ume] in on in AM Serum or source Plasma data Chloride 98 - 107 mmoL/L Normal No May 09 [Moles/vo informati 2016 4:51 lume] in on in AM Serum or source Plasma data Carbon 21.0 - mmoL/L Normal No May 09 dioxide, 32.0 informati 2016 4:51 total on in AM [Moles/vo source lume] in data Serum or Plasma Creatinin 0.70 - mg/dL High No May 09 e 1.30 informati 2016 4:51 [Mass/vol on in AM ume] in source Serum or data Plasma Creatinin 50 - 200 ML/MIN Low No May 09 e renal informati 2016 4:51 clearance on in AM source predicted data by Cockcroft -Gault formula Estimated >60 ML/MIN No REFERENCE May 09 informati RANGE: 2017 4:51 glomerula on in >60 AM r source ML/MIN/1. filtratio data 73 SQUARE n rate METERSIf (GF this patient is -A merican, then multiply theresult by 1.210. Globulin 1.3 - 3.2 gm/dL High No May 09 [Mass/vol informati 2016 4:51 ume] in on in AM Serum source data Glucose 74 - 106 mg/dL Normal No May 09 [Mass/vol informati 2016 4:51 ume] in on in AM Serum or source Plasma data Potassium 3.5 - 5.1 mmoL/L Normal No May 09 informati 2016 4:51 [Moles/vo on in AM lume] in source Serum or data Plasma Sodium 136 - 145 mmoL/L Normal No May 09 [Moles/vo informati 2016 4:51 lume] in on in AM Serum or source Plasma data Aspartate 15 - 37 U/L Normal No May 09 informati 2016 4:51 aminotran on in AM sferase source [Enzymati data c activity/ volume] in Serum or Plasma Alanine 12 - 78 U/L Normal No May 09 aminotran informati 2016 4:51 sferase on in AM [Enzymati source c data activity/ volume] in Serum or Plasma Protein 6.4 - 8.2 gm/dL Normal No May 09 [Mass/vol informati 2016 4:51 ume] in on in AM Serum or source Plasma data Lipase [Enzymatic activity/volume] in Serum or Plasma Observa Value Referen Units Interpr Notes Date ti ce etation Range Lipase 73 - 393 U/L Low No May 09 [Enzymati informati 2016 4:51 c on in AM activity/ source volume] data in Serum or Plasma CBC W Auto Differential panel in Blood Observa Value Referen Units Interpr Notes Date ti ce etation Range Basophils 0 - 0.2 K/MM3 Normal No May 09 informati 2016 4:51 [#/volume on in AM ] in source Blood by data Automated count Basophils 0.1 - 2.0 % Normal No May 09 /100 informati 2017 4:51 leukocyte on in AM s in source Blood by data Automated count Eosinophi 0.0 - 0.4 K/mm3 High No May 09 ls informati 2016 4:51 [#/volume on in AM ] in source Blood by data Automated count Eosinophi 0.1 - % Normal No May 09 ls/100 12.0 informati 2016 4:51 leukocyte on in AM s in source Blood by data Automated count Granulocy 1.3 - 8.0 K/mm3 Normal No May 09 ita informati 2016 4:51 [#/volume on in AM ] in source Blood by data Automated count Granulocy 37.0 - % Normal No May 09 ita/100 80.0 informati 2016 4:51 leukocyte on in AM s in source Blood by data Automated count Hematocri 42.0 - % Low No May 09 t [Volume 52.0 informati 2016 4:51 on in AM Fraction] source of Blood data Hemoglobi 14.1 - g/dL Low No May 09 n 18.0 informati 2016 4:51 [Mass/vol on in AM ume] in source Blood data Lymphocyt 0.7 - 4.5 K/mm3 Normal No May 09 es informati 2016 4:51 [#/volume on in AM ] in source Unspecifi data ed specimen by Automated count Lymphocyt 10 - 50 % Normal No May 09 es informati 2016 4:51 [#/volume on in AM ] in source Unspecifi data ed specimen by Automated count Erythrocy 27 - 31.2 pg Low No May 09 te mean informati 2016 4:51 corpuscul on in AM ar source hemoglobi data n [Entitic mass] Erythrocy 31.8 - g/dl Low May 09 te mean 35.4 informati 2017 4:51 corpuscul on in AM ar source hemoglobi data n concentra tion [Mass/vol ume] by Automated count Erythrocy 82.2 - fl Low No May 09 te mean 97.8 informati 2016 4:51 corpuscul on in AM ar volume source [Entitic data volume] by Automated count Monocytes 0.1 - 1.0 K/mm3 Normal No May 09 informati 2016 4:51 [#/volume on in AM ] in source Blood by data Automated count Monocytes 1.7 - 9.3 % Normal No May 09 /100 informati 2017 4:51 leukocyte on in AM s in source Blood by data Automated count Platelet 7.4 - fl Normal May 09 mean 10.4 informati 2017 4:51 volume on in AM [Entitic source volume] data in Blood by Automated count Platelets 142 - 424 K/mm3 Normal No May 09 informati 2016 4:51 [#/volume on in AM ] in source Blood data Erythrocy 4.6 - 6.2 M/mm3 Low No May 09 ita informati 2016 4:51 [#/volume on in AM ] in source Amniotic data fluid Erythrocy 11.5 - % Normal No May 09 te 17.5 informati 2016 4:51 distribut on in AM ion width source [Entitic data volume] by Automated count Leukocyte 4.8 - K/MM3 Normal No May 09 s 10.8 informati 2016 4:51 [#/volume on in AM ] in source Blood data
[2017-06-05 13:49] LABS: HEMOGLOBIN 9.5 g/dL (14.1-18.0)
--- NOTE | 2017-06-05 14:23 | RADIOLOGY REPORT PS360 ---
CT HEAD W/O CONTRAST HISTORY: Near syncope NEAR SYNCOPE ORDERING PHYSICIAN: Rachel Rosas MD PATIENT AGE: 81 years COMPARISON: 07/22/2016 TECHNIQUE: Axial images obtained without contrast. Brain and bone windows reviewed. FINDINGS: No midline shift, mass effect, intracranial hemorrhage, hydrocephalus, or extra-axial fluid collection is evident. There is generalized atrophy. 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 There is mild motion artifact which does somewhat obscure fine detail. Mild mucosal thickening involves the ethmoid sinuses and there is a minimal amount fluid in left mastoid sinus. IMPRESSION: 1. No acute intracranial pathology. 2. 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 3. Mild ethmoid and left mastoid sinus disease
--- OUTSIDE RECORDS SUMMARY | 2017-06-05 15:12 | External Medical Summary Rpt ---
Demographics Preferred Language Estonian Marital Status Unknown Congregational Affiliation Unknown Race Unknown Ethnic Group Unknown Author Author HALEIGH Address Unknown Phone Immunization No patient found.
--- OUTSIDE RECORDS SUMMARY | 2017-06-05 15:12 | External Medical Summary Rpt ---
Demographics Preferred Language Pashto Marital Status Unknown Mormon Affiliation Unknown Race Unknown Ethnic Group Unknown Author Author HALEIGH Address Unknown Phone Immunization No patient found.
--- OUTSIDE RECORDS SUMMARY | 2017-06-05 15:12 | External Medical Summary Rpt ---
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
--- OUTSIDE RECORDS SUMMARY | 2017-06-05 15:12 | External Medical Summary Rpt ---
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
--- OUTSIDE RECORDS SUMMARY | 2017-06-05 15:13 | External Medical Summary Rpt ---
Author Author YUNIORNIGEL Basurto, [employer] Organization [employer] Address Unknown Phone Unavailable Results Cardiac enzymes Observa Value Referen Units Interpr Notes Date tion ce etation Range Creatine 0 - 4.0 U/L Normal No Jun 05 kinase.MB informati 2017 1:10 /Creatine on in PM source kinase.to data kirt [Ratio] in Serum or Plasma Creatine 0.0 - 3.6 ng/mL Normal No Jun 05 kinase.MB informati 2017 1:10 on in PM [Mass/vol source ume] in data Serum or Plasma Creatine 39 - 308 U/L Normal No Jun 05 kinase informati 2017 1:10 [Enzymati on in PM c source activity/ data volume] in Serum or Plasma Troponin 0.00 - ng/mL Normal No Jun 05 I.cardiac 0.06 informati 2017 1:10 on in PM [Mass/vol source ume] in data Serum or Plasma Comprehensive metabolic 2000 panel in Serum or Plasma Observa Value Referen Units Interpr Notes Date tion ce etation Range Albumin/G 1.1 - 1.8 No Normal No Jun 05 lobulin informati informati 2017 1:10 [Mass on in on in PM ratio] in source source Serum or data data Plasma Albumin 3.4 - 5.0 gm/dL Normal No Jun 05 [Mass/vol informati 2017 1:10 ume] in on in PM Serum or source Plasma data Alkaline 46 - 116 U/L Normal No Jun 05 phosphata informati 2017 1:10 se on in PM [Enzymati source c data activity/ volume] in Serum or Plasma Bilirubin 0.2 - 1.0 mg/dL Normal No Jun 05 .total informati 2017 1:10 [Mass/vol on in PM ume] in source Serum or data Plasma Urea 7 - 18 mg/dL High No Jun 05 nitrogen informati 2017 1:10 [Mass/vol on in PM ume] in source Serum or data Plasma Calcium 8.5 - mg/dL Low No Jun 05 [Mass/vol 10.1 informati 2017 1:10 ume] in on in PM Serum or source Plasma data Chloride 98 - 107 mmoL/L Normal No Jun 05 [Moles/vo informati 2016 1:10 lume] in on in PM Serum or source Plasma data Carbon 21.0 - mmoL/L Normal No Jun 05 dioxide, 32.0 informati 2016 1:10 total on in PM [Moles/vo source lume] in data Serum or Plasma Creatinin 0.70 - mg/dL High No Jun 05 e 1.30 informati 2017 1:10 [Mass/vol on in PM ume] in source Serum or data Plasma Creatinin 50 - 200 ML/MIN Low No Jun 05 e renal informati 2017 1:10 clearance on in PM source predicted data by Cockcroft -Gault formula Estimated >60 ML/MIN No REFERENCE Jun 05 informati RANGE: 2017 1:10 glomerula on in >60 PM r source ML/MIN/1. filtratio data 73 SQUARE n rate METERSIf (GF this patient is -A merican, then multiply theresult by 1.210. Globulin 1.3 - 3.2 gm/dL High No Jun 05 [Mass/vol informati 2016 1:10 ume] in on in PM Serum source data Glucose 74 - 106 mg/dL High No Jun 05 [Mass/vol informati 2016 1:10 ume] in on in PM Serum or source Plasma data Potassium 3.5 - 5.1 mmoL/L Normal No Jun 05 informati 2016 1:10 [Moles/vo on in PM lume] in source Serum or data Plasma Sodium 136 - 145 mmoL/L Normal No Jun 05 [Moles/vo informati 2016 1:10 lume] in on in PM Serum or source Plasma data Aspartate 15 - 37 U/L Normal No Jun 05 informati 2016 1:10 aminotran on in PM sferase source [Enzymati data c activity/ volume] in Serum or Plasma Alanine 12 - 78 U/L Normal No Jun 05 aminotran informati 2016 1:10 sferase on in PM [Enzymati source c data activity/ volume] in Serum or Plasma Protein 6.4 - 8.2 gm/dL Normal No Jun 05 [Mass/vol informati 2016 1:10 ume] in on in PM Serum or source Plasma data CBC W Auto Differential panel in Blood Observa Value Referen Units Interpr Notes Date tion ce etation Range Basophils 0 - 0.2 K/MM3 Normal No May 11 inform2016 1:10 [#/volume on in PM ] in source Blood by data Automated count Basophils 0.1 - 2.0 % Normal No Jun 05 / inform2016 1:10 leukocyte on in PM s in source Blood by data Automated count Eosinophi 0.0 - 0.4 K/mm3 High No Jun 05 ls 2016 1:10 [#/volume on in PM ] in source Blood by data Automated count Eosinophi 0.1 - % Normal No Jun 05 ls/100 12.0 informati 2016 1:10 leukocyte on in PM s in source Blood by data Automated count Granulocy 1.3 - 8.0 K/mm3 Normal No Jun 05 ita 2016 1:10 [#/volume on in PM ] in source Blood by data Automated count Granulocy 37.0 - % Normal No Jun 05 ita/100 80.0 informati 2016 1:10 leukocyte on in PM s in source Blood by data Automated count Hematocri 42.0 - % Low No Jun 05 t [Volume 52.0 2016 1:10 on in PM Fraction] source of Blood data Hemoglobi 14.1 - g/dL Low No Jun 05 n 18.0 2016 1:10 [Mass/vol on in PM ume] in source Blood data Lymphocyt 0.7 - 4.5 K/mm3 Normal No Jun 05 es 2016 1:10 [#/volume on in PM ] in source Unspecifi data ed specimen by Automated count Lymphocyt 10 - 50 % Normal No Jun 05 es 2016 1:10 [#/volume on in PM ] in source Unspecifi data ed specimen by Automated count Erythrocy 27 - 31.2 pg Low No Jun 05 te mean 2016 1:10 corpuscul on in PM ar source hemoglobi data n [Entitic mass] Erythrocy 31.8 - g/dl Low Jun 05 te mean 35.4 2016 1:10 corpuscul on in PM ar source hemoglobi data n concentra tion [Mass/vol ume] by Automated count Erythrocy 82.2 - fl Low Jun 05 te mean 97.8 ati 2016 1:10 corpuscul on in PM ar volume source [Entitic data volume] by Automated count Monocytes 0.1 - 1.0 K/mm3 Normal No Jun 052016 1:10 [#/volume on in PM ] in source Blood by data Automated count Monocytes 1.7 - 9.3 % Normal No Jun 052016 1:10 leukocyte on in PM s in source Blood by data Automated count Platelet 7.4 - fl Low No Jun 05 mean 10.4 2016 1:10 volume on in PM [Entitic source volume] data in Blood by Automated count Platelets 142 - 424 K/mm3 No No Jun 05ati 2016 1:10 [#/volume on in on in PM ] in source source Blood data data Erythrocy 4.6 - 6.2 M/mm3 Low No Jun 05 ita 2016 1:10 [#/volume on in PM ] in source Amniotic data fluid Erythrocy 11.5 - % Normal No Jun 05 te 17.5 inform2016 1:10 distribut on in PM ion width source [Entitic data volume] by Automated count Leukocyte 4.8 - K/MM3 Normal No Jun 05 s 10.8 2016 1:10 [#/volume on in PM ] in source Blood data CBC W Auto Differential panel in Blood Observa Value Referen Units Interpr Notes Date tion ce etation Range Basophils 0 - 0.2 K/MM3 Normal No May 112016 [#/volume on in 10:42 AM ] in source Blood by data Automated count Basophils 0.1 - 2.0 % Normal No May 112016 leukocyte on in 10:42 AM s in source Blood by data Automated count Eosinophi 0.0 - 0.4 K/mm3 Normal No May 11 ls 2016 [#/volume on in 10:42 AM ] in source Blood by data Automated count Eosinophi 0.1 - % Normal No May 11 ls/100 12.0 2016 leukocyte on in 10:42 AM s in source Blood by data Automated count Granulocy 1.3 - 8.0 K/mm3 Normal No May 112016 [#/volume on [...] g/dL Low No May 11 n 18.0 informati 2016 [Mass/vol on in 10:42 AM ume] in source Blood data Lymphocyt 0.7 - 4.5 K/mm3 Normal No May 11 es 2016 [#/volume on in 10:42 AM ] in source Unspecifi data ed specimen by Automated count Lymphocyt 10 - 50 % Normal No May 11 es inform2016 [#/volume on in 10:42 AM ] in source Unspecifi data ed specimen by Automated count Erythrocy 27 - 31.2 pg Low No May 11 te mean inform2016 corpuscul on in 10:42 AM ar source hemoglobi data n [Entitic mass] Erythrocy 31.8 - g/dl Low No May 11 te mean 35.4 2016 corpuscul on in 10:42 AM ar source hemoglobi data n concentra tion [Mass/vol ume] by Automated count Erythrocy 82.2 - fl Low No May 11 te mean 97.8 informati 2016 corpuscul on in 10:42 AM ar volume source [Entitic data volume] by Automated count Monocytes 0.1 - 1.0 K/mm3 Normal No May 112016 [#/volume on in 10:42 AM ] in source Blood by data Automated count Monocytes 1.7 - 9.3 % Normal No May 11 /100 2016 leukocyte on in 10:42 AM s in source Blood by data Automated count Platelet 7.4 - fl Low No May 11 mean 10.4 informati 2016 volume on in 10:42 AM [Entitic source volume] data in Blood by Automated count Platelets 142 - 424 K/mm3 Normal No May 112016 [#/volume on in 10:42 AM ] in source Blood data Erythrocy 4.6 - 6.2 M/mm3 Low No May 11 ita informati 2016 [#/volume on in 10:42 AM ] in source Amniotic data fluid Erythrocy 11.5 - % Normal No May 11 te 17.5 informati 2016 distribut on in 10:42 AM ion [...] mmoL/L Normal No May 10 [Moles/vo informati 2017 6:20 lume] in on in AM Serum or source Plasma data CBC W Auto Differential panel in Blood Observa Value Referen Units Interpr Notes Date tion ce etation Range Basophils 0 - 0.2 K/MM3 Normal No May 10 informati 2016 6:20 [#/volume on in AM ] in source Blood by data Automated count Basophils 0.1 - 2.0 % Normal No Igor 16 /100 informati 2017 6:20 leukocyte on in AM s in source Blood by data Automated count Eosinophi 0.0 - 0.4 K/mm3 High No May 10 ls informati 2017 6:20 [#/volume on in AM ] in source Blood by data Automated count Eosinophi 0.1 - % Normal No May 10 ls/100 12.0 informati 2017 6:20 leukocyte on in AM s in source Blood by data Automated count Granulocy 1.3 - 8.0 K/mm3 Normal No May 10 ita informati 2016 6:20 [#/volume on in AM ] in source Blood by data Automated count Granulocy 37.0 - % Normal No May 10 ita/100 80.0 informati 2017 6:20 leukocyte on in AM s in source Blood by data Automated count Hematocri 42.0 - % Low No May 10 t [Volume 52.0 informati 2016 6:20 on in AM Fraction] source of Blood data Hemoglobi 14.1 - g/dL Low alert May 10 n 18.0 2016 6:20 [Mass/vol CRITICAL AM ume] in RESULTS Blood RESU LTS CALLED TO: Suman RODRIGUEZ RN 05/10/17 0709 Staci Stuart Lymphocyt 0.7 - 4.5 K/mm3 Normal No May 10 es informati 2016 6:20 [#/volume on in AM ] in source Unspecifi data ed specimen by Automated count Lymphocyt 10 - 50 % Normal No May 10 es informati 2016 [...] - 1.0 K/mm3 Normal No May 10 inform2016 6:20 [#/volume on in AM ] in source Blood by data Automated count Monocytes 1.7 - 9.3 % Normal No Apr 16 /100 informati 2016 6:20 leukocyte on in AM s in source Blood by data Automated count Platelet 7.4 - fl Normal No May 10 mean 10.4 informati 2016 6:20 volume on in AM [Entitic source volume] data in Blood by Automated count Platelets 142 - 424 K/mm3 Normal No May 10 inform2016 6:20 [#/volume on in AM ] in source Blood data Erythrocy 4.6 - 6.2 M/mm3 Low No May 10 ita informati 2016 6:20 [#/volume on in AM ] in source Amniotic data fluid Erythrocy 11.5 - % Normal No May 10 te 17.5 informati 2016 6:20 distribut on in AM ion width source [Entitic data volume] by Automated count Leukocyte 4.8 - K/MM3 Normal No May 10 s 10.8 informati 2016 6:20 [#/volume on in AM [...] mg/dL Normal No May 09 .total informati 2016 4:51 [Mass/vol on in AM ume] in source Serum or data Plasma Urea 7 - 18 mg/dL High No May 09 nitrogen informati 2016 4:51 [Mass/vol on in AM [...] Normal No May 09 dioxide, 32.0 informati 2017 4:51 total on in AM [Moles/vo source lume] in data Serum or Plasma Creatinin 0.70 - mg/dL High No May 09 e 1.30 informati 2016 4:51 [Mass/vol on in AM ume] in source Serum or data Plasma Creatinin 50 - 200 ML/MIN Low No May 09 e renal informati 2017 4:51 clearance on in AM source predicted [...] 5.1 mmoL/L Normal No May 09 informati 2017 4:51 [Moles/vo on in AM lume] in source Serum or data Plasma Sodium 136 - 145 mmoL/L Normal No May 09 [Moles/vo informati 2016 4:51 lume] in on in AM Serum or source Plasma data Aspartate 15 - 37 U/L Normal No May 09 inform2016 4:51 aminotran on in AM sferase source [...] Interpr Notes Date tion ce etation Range Lipase 73 - 393 U/L Low No May 09 [Enzymati informati 2016 4:51 c on in AM activity/ source volume] data in Serum or Plasma CBC W Auto Differential panel in Blood Observa Value Referen Units Interpr Notes Date tion ce etation Range Basophils 0 - 0.2 K/MM3 Normal No May 092016 4:51 [#/volume on in AM ] in source Blood by data Automated count Basophils 0.1 - 2.0 % Normal No May 09 informati 2016 4:51 leukocyte on in AM s in source Blood by data Automated count Eosinophi 0.0 - 0.4 K/mm3 High No May 09 ls informati 2016 4:51 [#/volume on in AM ] in source Blood by data Automated count Eosinophi 0.1 - % Normal May 09 ls/100 12.0 informati 2016 4:51 [...] Automated count Hematocri 42.0 - % Low May 09 t [Volume 52.0 informati 2016 4:51 on in AM Fraction] source of Blood data Hemoglobi 14.1 - g/dL Low No Igor 15 n 18.0 informati 2017 4:51 [Mass/vol on in AM ume] in source Blood data Lymphocyt 0.7 - 4.5 K/mm3 Normal No May 09 es informati 2017 4:51 [#/volume on in AM ] in source Unspecifi data ed specimen by Automated count Lymphocyt 10 - 50 % Normal No May 09 es informati 2016 4:51 [#/volume on in AM ] in source Unspecifi data ed specimen by Automated count Erythrocy 27 - 31.2 pg Low No May 09 te mean informati 2017 4:51 corpuscul on in AM ar source hemoglobi data n [Entitic mass] Erythrocy 31.8 - g/dl Low No May 09 te mean 35.4 informati 2017 4:51 corpuscul on in AM ar source hemoglobi data n concentra tion [Mass/vol ume] by Automated count Erythrocy 82.2 - fl Low No May 09 te mean 97.8 informati 2017 4:51 corpuscul on in AM ar volume source [Entitic data volume] by Automated count Monocytes 0.1 - 1.0 K/mm3 Normal No May 09 informati 2017 4:51 [#/volume on in AM ] in source Blood by data Automated count Monocytes 1.7 - 9.3 % Normal No May 09 /100 informati 2017 4:51 leukocyte on in AM s in source Blood by data Automated count Platelet 7.4 - fl Normal No May 09 mean 10.4 informati 2017 4:51 volume on in AM [Entitic source volume] data in Blood by Automated count Platelets 142 - 424 K/mm3 Normal No May 09 informati 2017 4:51 [#/volume on in AM ] in source Blood data Erythrocy 4.6 - 6.2 M/mm3 Low No May 09 ita informati 2017 4:51 [#/volume on in AM ] in source Amniotic data fluid Erythrocy 11.5 - % Normal No May 09 te 17.5 informati 2017 4:51 distribut on in AM ion width source [Entitic data volume] by Automated count Leukocyte 4.8 - K/MM3 Normal No May 09 s 10.8 informati 2017 4:51 [#/volume on in AM ] in source Blood data
--- NOTE | 2017-06-05 15:48 | RADIOLOGY REPORT PS360 ---
CHEST-PORTABLE HISTORY: Aspiration, near-syncope, gurgling near syncope ORDERING PHYSICIAN: Rachel Rosas MD PATIENT AGE: 81 years COMPARISON: None available FINDINGS: There is cardiomegaly without failure. There is prominence of the descending thoracic aorta. Chronic changes are present in the right lower lobe with small right effusion. Patchy density is present in the right upper lobe and may be due to an area of new infiltrate. Follow-up suggested. The left lung is clear. IMPRESSION: 1. Abnormal chest with cardiomegaly and dilated/tortuous descending thoracic aorta with chronic changes in the right lung base. 2. Patchy infiltrate in right upper lobe.
[2017-06-05 16:38] VITALS: BP 163/90
[2017-06-05] MEDS ORDERED: AMLODIPINE10 MG PO (18:04)
[2017-06-05 18:13] VITALS: BP 163/90
[2017-06-05 19:37] VITALS: BP 150/87
--- NOTE | 2017-06-05 19:43 | HISTORY AND PHYSICAL REPORT ---
History and Physical ([facility]) Date of admission: 06/05/17 Chief complaint: Near syncopal spell History: History of Present Illness: Mr. Torre is 81-year-old white male with a history of hypertension, cerebrovascular disease, cardiomyopathy, hypothyroidism, and chronic renal failure who was in his usual state of health until shortly after noon today. According to his he was sitting up in his wheelchair when she heard a strange noise. When she entered the room, she found him slumped to the side and drooling. He had not totally lost consciousness but was not responding appropriately for several minutes. She immediately called the ambulance and by the time they arrived he was more alert and sitting back up in his chair but seemed a bit disoriented. He was brought to the emergency room where he was evaluated. CT scan of the head showed nothing acute. His laboratory data was fairly unremarkable. Cardiac enzymes were negative. His chest x-ray however did show a possible early right upper lobe infiltrate. His notes that he has had some increased cough and congestion over the past few days but no fever. Appetite has been fairly normal. He has had ongoing problems with constipation and his hospice physician has adjusted some of his medications and in fact had discontinued his Plavix about 2 weeks ago. He has been admitted this time for observation of his neurologic status, monitoring for cardiac dysrhythmia, and treatment of his pneumonia. Past Medical History: Medical History: CAD? Yes Angina: No [place]: Yes Hypertension? Yes Hyperlipidemia? No CHF? Yes DVT? No PE? No COPD? No Asthma? No Anemia? No GERD? No Gastric ulcers? Yes GI Bleed? No Hernia? No Thyroid Problems? Yes Hypothyroidism? Yes CVA? Yes Seizures? No Diabetes? No Renal Insuffiency? Yes UTI? Yes Stones? No BPH? Yes GB Disease: No Nephritic Syndrome? No Asplenia? No Hepatitis? No Sickle Cell Disease? No Arthritis? No Migraines? No Cataracts? No Glaucoma? No MRSA? No HIV? No TB? No Anxiety? No Depression? Yes Cancer? No Additional hx: AAA Surgical history: Previous Surgery?Y DISCECTOMY 1968 KNEE ARTHROSCOPY DEVIATED SEPTUM Medications: Active Scripts Hydralazine Hcl (Hydralazine 25MG Tab) 50 MG PO Q8H #90 TAB Ref 2 Prov: 02/13/17 Isosorbide Dinitrate (Isosorbide Dinitrate 20MG) 40 MG PO Q8H #90 TAB Ref 2 Prov: 02/13/17 Reported Medications Mirabegron (Myrbetriq) 25 MG PO MoWeFr #30 TAB Lorazepam (Lorazepam 0.5MG) 0.5 MG PO Q6HP PRN ANXIETY Aspirin (Adult Low Dose Aspirin EC) 81 MG PO DAILY LEVOTHYROXINE SOD (Levothyroxine 0.05MG) 0.05 MG PO DAILY Amlodipine Besylate (Amlodipine) 10 MG PO DAILY DESIPRAMINE HCL (Desipramine HCl) 1-2 TAB PO DAILY #60 TAB Morphine Sulfate (Morphine Sulf Oral Conc) 0.5 ML PO Q4HP PRN BREATHING/ PAIN Docusate Calcium (Stool Softener) 240 MG PO DAILYP PRN CONSTIPATION Bisacodyl (Bisa-Lax) 5 MG PO Q3D Bacillus Coagulans (Probiotic) 1 EACH PO DAILY Allergies: Coded Allergies: No Known Allergies (05/09/17) Family History: Family history: Postive for: CAD, DM. Social History: Smoking Hx Tobacco: No Smoker: Never Smoker Type: Cigarettes Packs/day: N/A Are you exposed to second hand No Alcohol: Alcohol: No Hx of Drug Use: Drug Use? No Patien't marital status is: Patient's support system is: excellent Review of Systems: Patient unresponsive? Yes Physical Exam: Vital signs: 1ST Vital Signs Result Date Time Pulse Ox 97 06/05 1320 B/P 154/89 06/05 1320 O2 Flow Rate 2 06/05 1320 Temp 98.2 06/05 1320 Pulse 67 06/05 1320 Resp 18 06/05 1320 O2 Delivery OXYGEN 06/05 1638 Exam: General appearance: he is lying in bed and somewhat lethargic. He does open his eyesan attempts to talk. Eyes: conjunctiva clear ENT: mucous membranes moist Neck: no carotid bruit, no masses Cardiovascular: regular rate & rhythm Respiratory: generally diminished but otherwise clear ABD: non-distended, normal bowel sounds, soft, no tenderness, no guarding Extremities: no peripheral edema Skin: dry, normal color, warm Neuro: right hemiparesthesias Lab data: Labs: Laboratory Tests 06/05/17 1545: Troponin I 0.05 06/05/17 1545: Lactic Acid 1.1 06/05/17 1310: Sodium 137, Potassium 3.5, Chloride 100, Carbon Dioxide 27, BUN 25 H, Creatinine 2.3 H, Estimated Creat Clear 23 L, Estimated GFR (MDRD) 27, Glucose 181 H, Calcium 8.4 L, Total Bilirubin 0.3, AST 18, ALT 15, Alkaline Phosphatase 91, Creatine Kinase 61, CK-MB (CK-2) Rel Index 2.8, CK and CKMB Interp 1.7, Troponin I 0.04, Total Protein 7.2, Albumin 3.7, Globulin 3.5 H, Albumin/Globulin Ratio 1.1, WBC 8.9, RBC 4.06 L, Hgb 9.5 L, Hct 31.8 L, MCV 78.2 L, RDW 15.8, Plt Count 372, MPV 7.3 L, Gran % 64.7, Gran # 5.8, Lymphocytes % 21.9, Monocytes % 6.0, Eosinophils % 6.5, Basophils % 0.8, Lymphocytes # 1.9, Monocytes # 0.5, Eosinophils # 0.6 H, Basophils # 0.1, PUBS MCHC 29.8 L, MCH 23.3 L Microbiology 06/05 1414 BLOOD: Anaerobic Blood Culture - RECD 06/05 1414 BLOOD: Aerobic Blood Culture - RECD 06/05 1414 BLOOD: Anaerobic Blood Culture - RECD 06/05 1414 BLOOD: Aerobic Blood Culture - RECD Diagnosis(es): 1. Right upper lobe pneumonia 2. Near syncope 3. Cardiomyopathy 4. History of CVA with residual deficit Status: Chronic 5. Hypertension Status: Chronic 6. Hypothyroidism 7. Chronic renal failure 8. Chronic constipation 9. AAA (abdominal aortic aneurysm) without rupture Status: Chronic Plan: The etiology of his near syncopal episode is not clear. The fact that his Plavix was stopped 2 weeks ago could increase his risk for TIA. Certainly with his history of cardiomyopathy, he could be prone to a cardiac dysrhythmia. His did not witness any seizure activity. The pneumonia seems to be an incidental finding and he has empirically been started on Rocephin and Zithromax. He has been placed on a director of cardiac cath lab. He will have serial enzymes to rule out acute infarction. He has been placed back on his Plavix. Additional workup and treatment will be as indicated by his hospital course. at [id number]
[2017-06-05 20:50] VITALS: BP 150/87
[2017-06-05] MEDS ORDERED: HYDRALAZINE HY100 MG PO (22:36)
[2017-06-05] MEDS ORDERED: SENNA LAXATIVE8.6 MG PO (22:37)
[2017-06-06] VITALS (7 sets, daily range): BP systolic 154–191; BP diastolic 77–97
[2017-06-06 07:01] LABS: LYMPH # 0.9 K/mm3 (0.7-4.5); LYMPH % 14.2 % (10-50)
[2017-06-06 07:09] LABS: HEMOGLOBIN 8.2 g/dL (14.1-18.0)
--- NOTE | 2017-06-06 07:49 | RADIOLOGY REPORT PS360 ---
CHEST-PORTABLE HISTORY: f/u pneumonia ORDERING PHYSICIAN: Roxana Virgen MD PATIENT AGE: 81 years COMPARISON: 06/05/2017 FINDINGS: There remains cardiomegaly with prominence of the descending thoracic aorta consistent with aortic aneurysm/tortuosity. Consider chest CT for more thorough evaluation. Patchy infiltrate is once again noted in the right upper lobe and there are chronic changes in the right lung base with some suspected small right effusion. Left lung is clear. IMPRESSION: 1. Thoracic aortic aneurysm. Consider chest CT for more thorough evaluation. 2. No change right upper lobe pneumonia with chronic changes in the right lung base
--- NOTE | 2017-06-06 08:50 | ACUTE CARE PROGRESS NOTE (QUA) ---
Progress Notes Subjective Date 06/06/17 Time 0847 Note Patient's reports that patient still seems very weak this morning. He has not eaten or drank anything this morning. She is concerned that he could have a problem with his swallowing. Objective Findings Laboratory Tests 06/06/17 0605: Sodium 137, Potassium 3.4 L, Chloride 104, Carbon Dioxide 26, BUN 22 H, Creatinine 1.9 H, Estimated Creat Clear 28 L, Estimated GFR (MDRD) 34, Glucose 104, Calcium 7.8 L, WBC 6.3, RBC 3.52 L, Hgb 8.2 L, Hct 27.6 L, MCV 78.5 L, RDW 15.8, Plt Count 301, MPV 7.7, Gran % 73.4, Gran # 4.7, Lymphocytes % 14.2, Monocytes % 6.7, Eosinophils % 5.3, Basophils % 0.5, Lymphocytes # 0.9, Monocytes # 0.4, Eosinophils # 0.3, Basophils # 0.0, PUBS MCHC 29.5 L, MCH 23.2 L 06/05/17 1905: Troponin I 0.05 06/05/17 1545: Troponin I 0.05 06/05/17 1545: Lactic Acid 1.1 06/05/17 1310: Sodium 137, Potassium 3.5, Chloride 100, Carbon Dioxide 27, BUN 25 H, Creatinine 2.3 H, Estimated Creat Clear 23 L, Estimated GFR (MDRD) 27, Glucose 181 H, Calcium 8.4 L, Total Bilirubin 0.3, AST 18, ALT 15, Alkaline Phosphatase 91, Creatine Kinase 61, CK-MB (CK-2) Rel Index 2.8, CK and CKMB Interp 1.7, Troponin I 0.04, Total Protein 7.2, Albumin 3.7, Globulin 3.5 H, Albumin/Globulin Ratio 1.1, WBC 8.9, RBC 4.06 L, Hgb 9.5 L, Hct 31.8 L, MCV 78.2 L, RDW 15.8, Plt Count 372, MPV 7.3 L, Gran % 64.7, Gran # 5.8, Lymphocytes % 21.9, Monocytes % 6.0, Eosinophils % 6.5, Basophils % 0.8, Lymphocytes # 1.9, Monocytes # 0.5, Eosinophils # 0.6 H, Basophils # 0.1, PUBS MCHC 29.8 L, MCH 23.3 L Microbiology 06/05 1414 BLOOD: Anaerobic Blood Culture - RECD 06/05 141 BLOOD: Aerobic Blood Culture - RECD 06/05 141 BLOOD: Anaerobic Blood Culture - RECD 06/05 1414 BLOOD: Aerobic Blood Culture - RECD Vital Signs Date Time Temp Pulse Resp B/P Pulse O2 O2 Flow FiO2 Ox Delivery Rate 06/06 0802 2 06/06 0802 97.6 75 20 167/97 96 OXYGEN 2 06/06 0700 2 06/06 0630 2 06/06 0535 98.3 75 20 191/93 95 OXYGEN 06/06 0500 2 06/06 0300 2 06/06 0201 2 06/06 0100 2 06/05 2339 2 06/05 2300 2 06/05 2151 2 06/05 2100 2 06/05 2050 98.2 76 20 150/87 97 2 06/05 1937 2 06/05 1937 98.2 76 20 150/87 97 OXYGEN 2 06/05 1813 80 / 1813 2 06/05 1813 98.4 80 20 163/90 / 1813 98 OXYGEN 06/05 1800 2 06/05 1800 2 06/05 1800 2 06/05 1800 97 OXYGEN 2 06/05 1800 97 OXYGEN 2 06/05 1723 98.4 80 20 163/90 98 2 06/05 1638 98.4 80 20 163/90 98 OXYGEN 2 06/05 1529 2 06/05 1529 2 06/05 1517 78 18 163/90 97 2 06/05 1320 98.2 67 18 154/89 97 2 I&O Past 24 Hrs-ending at 0700 08 0700 Intake Total 60 Output Total Balance 60 Last VS-Temp:97.6 B/P:167/97 Pulse:75 Resp:20 SaO2:96 OXYGEN Last weight lbs:138 oz:8 K.823 Method:Bed Scales Exam General appearance: normal appearance (attempts to talk), alert, awake, no acute distress ENT: mucous membranes moist Cardiovascular: regular rate & rhythm Respiratory: good air movement (few coarse breath sounds) ABD: normal bowel sounds, soft, no tenderness Extremities: no peripheral edema Assessment/Plan Problem List 1. Right upper lobe pneumonia 2. Near syncope 3. Cardiomyopathy 4. History of CVA with residual deficit Status: Chronic 5. Hypertension Status: Chronic 6. Hypothyroidism 7. Chronic renal failure 8. Chronic constipation 9. AAA (abdominal aortic aneurysm) without rupture Status: Chronic This inpt stay is expected to cross 2 MNs from start of care Yes Comments: Patient has not improved much clinically since admission. Continue inpatient treatment for pneumonia, will request speech therapy evaluation. Replace potassium at 0834
--- NOTE | 2017-06-06 11:23 | PHARMACY CLINIC NOTE ---
Patient Demographics Patient Demographics Admission date: 06/06/17 Date: 06/06/17 Time: 1122 Allergies Coded Allergies: No Known Allergies (05/09/17) HEIGHT- FT: 5 IN: 8.00 K.823 VTE General Information Labs: Laboratory Tests 06/06 06/05 0605 1310 Hematology Hgb (14.1 - 18.0 g/dL) 8.2 L 9.5 L Hct (42.0 - 52.0 %) 27.6 L 31.8 L Plt Count (142 - 424 K/mm3) [phone] Disclaimer The following section includes nursing documentation that has been pulled in for pharmacy review. Patient's VTE score: 5 Patient's VTE Risk: LOW RISK Clinical trial participant? No VTE prophylaxis [id number] VTE prophylaxis ordered? Yes Type of prophylaxis/treatment: ICD at 1122
[2017-06-07] VITALS (9 sets, daily range): BP systolic 159–183; BP diastolic 79–98
[2017-06-07 06:20] LABS: HEMOGLOBIN 8.1 g/dL (14.1-18.0); LYMPH # 0.9 K/mm3 (0.7-4.5); LYMPH % 13.5 % (10-50)
--- NOTE | 2017-06-07 09:56 | ACUTE CARE PROGRESS NOTE (QUA) ---
Progress Notes Subjective Date 06/07/17 Time 0953 Note reports that patient feels better today, had a long coughing episode this morning. Objective Findings Laboratory Tests 06/07/17 0610: Sodium 138, Potassium 3.9, Chloride 105, Carbon Dioxide 28, BUN 23 H, Creatinine 1.8 H, Estimated Creat Clear 29 L, Estimated GFR (MDRD) 36, Glucose 108 H, Calcium 7.8 L, WBC 6.3, RBC 3.47 L, Hgb 8.1 L, Hct 27.1 L, MCV 78.1 L, RDW 15.8, Plt Count 280, MPV 6.7 L, Gran % 72.7, Gran # 4.6, Lymphocytes % 13.5, Monocytes % 6.0, Eosinophils % 7.1, Basophils % 0.7, Lymphocytes # 0.9, Monocytes # 0.4, Eosinophils # 0.5 H, Basophils # 0.0, PUBS MCHC 29.8 L, MCH 23.3 L Vital Signs Date Time Temp Pulse Resp B/P Pulse O2 O2 Flow FiO2 Ox Delivery Rate 06/07 0949 2 06/07 0949 98.3 72 18 182/84 96 2 06/07 0800 98.3 72 18 182/84 96 OXYGEN 06/07 0640 2 06/07 0615 2 06/07 0442 2 06/07 0437 2 06/07 0437 98.0 81 18 159/98 96 OXYGEN 2 06/07 0314 2 06/07 0204 2 06/07 0154 97 OXYGEN 2 06/07 0144 2 06/07 0007 2 06/07 0007 98.3 75 16 183/89 95 OXYGEN 2 06/06 2323 2 06/06 2300 2 06/06 2145 98.4 74 18 169/94 95 2 06/06 2100 2 06/06 1928 2 06/06 1928 98.4 74 18 169/94 97 OXYGEN 2 06/06 1902 2 06/06 1728 2 06/06 1639 2 06/06 1539 2 06/06 1539 97.9 76 20 158/77 96 OXYGEN 2 06/06 1527 2 06/06 1335 2 06/06 1312 2 06/06 1143 2 06/06 1143 98.5 80 20 154/88 95 OXYGEN 2 06/06 1132 2 08/12 1000 2 I&O Past 24 Hrs-ending at 0700 06/07 0700 Intake Total 3807 Output Total Balance 3807 Last VS-Temp:98.3 B/P:182/84 Pulse:72 Resp:18 SaO2:96 OXYGEN Last weight lbs:138 oz:8 K.823 Method:Bed Scales Exam General appearance: alert, awake, no acute distress ENT: mucous membranes moist Cardiovascular: regular rate & rhythm Respiratory: good air movement, crackles (right side) ABD: normal bowel sounds, soft, no tenderness Extremities: no peripheral edema Assessment/Plan Problem List 1. Right upper lobe pneumonia 2. Near syncope 3. Cardiomyopathy 4. History of CVA with residual deficit Status: Chronic 5. Hypertension Status: Chronic 6. Hypothyroidism 7. Chronic renal failure 8. Chronic constipation 9. AAA (abdominal aortic aneurysm) without rupture Status: Chronic This inpt stay is expected to cross 2 MNs from start of care Yes Comments: Patient improving, await culture report and speech therapy evaluation. Continue current treatment. at 0955
[2017-06-08 04:09] VITALS: BP 190/97
[2017-06-08 04:20] VITALS: BP 190/88
[2017-06-08 08:00] VITALS: BP 153/91
--- NOTE | 2017-06-08 08:06 | ACUTE CARE PROGRESS NOTE (QUA) ---
Progress Notes Subjective Date 06/08/17 Time 0757 Note Son stayed during the night and states that he slept until 0400 when nursing care began; eating as usual; good liquid PO intake; + urine and stool; patient indicates that he is not SOB and has no pain BP noted to be elevated and received 1 dose of clonidine. Speech therapist in to see pt. Objective Findings Vital Signs Date Time Temp Pulse Resp B/P Pulse O2 O2 Flow FiO2 Ox Delivery Rate 06/08 0637 2 06/08 0609 2 06/08 0448 2 06/08 0420 190/88 06/08 0409 2 06/08 0409 98.0 75 18 190/97 96 OXYGEN 2 06/08 0341 89 ROOM AIR 06/08 0300 2 06/08 0149 2 06/08 0049 2 06/07 2331 2 06/07 2331 97.5 82 18 167/79 92 OXYGEN 2 06/07 2250 2 06/07 2200 2 06/07 2100 2 06/07 2013 98.3 73 18 177/97 96 2 06/07 1929 2 06/07 1929 98.3 73 18 177/97 96 OXYGEN 2 06/07 1857 2 06/07 1707 2 06/07 1600 97.8 70 18 164/96 95 OXYGEN 06/07 1431 2 06/07 1300 2 06/07 1200 98.1 71 18 159/85 95 OXYGEN 06/07 1111 2 06/07 0949 2 06/07 0949 98.3 72 18 182/84 96 2 06/07 0800 98.3 72 18 182/84 96 OXYGEN Current Medications Bisacodyl 5 MG Q3D PO (DC) Patient Own Medication 2 UNIT Q3D PRN PRN PO Clonidine HCl 0.1 MG ONCE ONE PO (DC) Clonidine HCl 0 .STK-MED ONE .ROUTE (DC) Patient Own Medication 1 UNIT DAILY PO Patient Own Medication 1 UNIT DAILY PO Patient Own Medication 1 UNIT DAILY PO Patient Own Medication 1 UNIT BID PO Patient Own Medication 0.5 UNIT TID PO Phenol 1 SPRAY TO THROAT Q2HP Q2HP PRN MT Patient Own Medication 2 UNIT TID PO Azithromycin 500 MG DAILY IV Sodium Chloride 250 ML Ceftriaxone Sodium 1 GM DAILY IV Sodium Chloride 50 ML Clopidogrel Bisulfate 75 MG DAILY PO Potassium Chloride/Dextrose/Sod Cl 1,000 ML .[id number] IV Lorazepam 0.5 MG Q6HP PRN PO Morphine Sulfate 10 MG Q4HP PRN PO Sodium Chloride 10 ML PRN PRN IV Ondansetron HCl 4 MG Q6HP PRN IV 06/07 1500 06/07 2300 06/08 0700 Intake Total 687 774 2056 Output Total 200 Balance 035 735 4028 Intake, IV 2429 Intake, Oral 360 360 Output, Urine 200 Last VS-Temp:98.0 B/P:190/88 Pulse:75 Resp:18 SaO2:96 OXYGEN Last weight lbs:138 oz:8 K.823 Method:Bed Scales CXR 06/06/17 IMPRESSION: 1. Thoracic aortic aneurysm. Consider chest CT for more thorough evaluation. 2. No change right upper lobe pneumonia with chronic changes in the right lung base Blood culture results are pending Exam General appearance: alert, thin, assists with turning for exam Cardiovascular: regular rate & rhythm Respiratory: por inspiratory effort this AM; diminished BS posteriorly ABD: soft, no tenderness, bowel sounds present Extremities: no peripheral edema Neuro: alert Assessment/Plan Problem List 1. Right upper lobe pneumonia 2. Near syncope 3. Cardiomyopathy 4. History of CVA with residual deficit Status: Chronic 5. Hypertension Status: Chronic 6. Hypothyroidism 7. Chronic renal failure 8. Chronic constipation 9. AAA (abdominal aortic aneurysm) without rupture Status: Chronic Patient condition Improving Plan: continue current care, await culture and speech therapy eval results This inpt stay is expected to cross 2 MNs from start of care Yes (Corinna Bird APRN) Assessment/Plan Problem List 1. Right upper lobe pneumonia 2. Near syncope 3. Cardiomyopathy 4. History of CVA with residual deficit Status: Chronic 5. Hypertension Status: Chronic 6. Hypothyroidism 7. Chronic renal failure 8. Chronic constipation 9. AAA (abdominal aortic aneurysm) without rupture Status: Chronic Comments: Patient seen and agree with above note. OK to discharge home into hospice care. (Jan Toure MD) at 0805 at 0847
--- NOTE | 2017-06-08 08:36 | ST BEDSIDE DYSPHAGIA EVAL ---
SUBJECTIVE-DYSPHAGIA Date: 06/08/17 Time: 0800 Eval Type: Initial Certification - Admitted Date: 06/06/17 Primary Diagnosis: SYNCOPE/PNEUMONIA Reason for Consult: DYSPHAGIA Pt/Caregiver Concerns: ASPIRATION PNEUMONIA Onset of symptoms- 06/05/17 1245 Symptoms have worsened? NO improved? NO resolved? NO since onset. Current Diet: CARDIAC DIET WITH FULL LIQUIDS Allergies Coded Allergies: No Known Allergies (05/09/17) Home Medications Active Scripts Isosorbide Dinitrate (Isosorbide Dinitrate 20MG) 40 MG PO Q8H #90 TAB Ref 2 Prov: 02/13/17 Reported Medications Mirabegron (Myrbetriq) 25 MG PO MoWeFr #30 TAB Docusate Calcium (Stool Softener) 2 CAP PO BID PRN CONSTIPATION Bisacodyl (Bisa-Lax) 10 MG PO Q3D Lorazepam (Lorazepam 0.5MG) 0.5 MG PO Q6HP PRN ANXIETY Hydralazine Hcl (Hydralazine Hydrochloride) 100 MG PO TID Senna Pod (Senna Laxative) 1 TAB PO BID Aspirin (Adult Low Dose Aspirin EC) 81 MG PO DAILY LEVOTHYROXINE SOD (Levothyroxine 0.05MG) 0.05 MG PO DAILY Amlodipine Besylate (Amlodipine) 10 MG PO DAILY DESIPRAMINE HCL (Desipramine HCl) 1-2 TAB PO DAILY #60 TAB Morphine Sulfate (Morphine Sulf Oral Conc) 0.5 ML PO Q4HP PRN BREATHING/ PAIN Bacillus Coagulans (Probiotic) 1 EACH PO DAILY Is this assessment r/t stroke? No OBJECTIVE COMMUNICATION/COGNITION Barriers to communication/cog? Yes Orientation NEG: Name, Place, Day, Date, Year. Follows Commands POS: Follows 1-step commands. NEG: Follows 2-step commands. Able to remember swallow strategies? No Intelligibility Poor Barriers to communication: HISTORY OF CVA ORAL-MOTOR STRUCTURE/FUNCTION Structure/Function WFL: Labial, Buccal, Lingual, Velar, Mandibular. Facial Asymmetry Right Laryngeal Function Could not check: Voluntary Cough, Throat Clearing. Vocal Quality Aphonic Dentition Good dentition RESPIRATORY STATUS/HISTORY Is resp status/hx a concern? Yes Requires Oxygen: Cannula Breathes from mouth? Yes Risk-fatigue due to comp.resp? Yes DYSPHAGIA SIGNS W/CONSISTENCY Any S/S of Dysphagia? No ASSESSMENT/PLAN ASSESSMENT Impression Mr. Torre, an 81 year old male, was referred for a bedside evaluation of swallowing by his physician, Dr. Toure. Mr. Torre has a history of CVA resulting in right side facial weakness but oral motor function is within functional limits. Mr. Torre was given the following consistencies: thins via straw and open cup and regular. No signs of dysphagia were noted. At this time, it is recommended that Mr. Torre remain on current diet. If he were to have meat, it is recommended that he have it chopped with gravy/sauce. At this time, speech therapy is not warranted due to difficuly following directions. Family was given compensatory strategies: head turn to right/chin down to aid in safe swallowing. Liquids should be given via straw. PLAN SWALLOW GUIDELINES Standard Aspiration Prec., Head Positioning (Chin Down-Turn Right), Liquids Given (Straw Only) Rehab Medicare G Code Plan Medicare/G Code eligible? Yes Therapy Discipline Plan: CERTIFIED [employer] PATROLLER PLAN OF CARE G Code Current Status: SWALLOWING (G8996) Current Status Modifier: 1%-19% IMPAIRED (CI) G Code Goal Status: SWALLOWING (G8997) Goal Status Modifier: 1%-19% IMPAIRED (CI) G Code Discharge Status: SWALLOWING (G8998) Discharge Status Modifier: 1%-19% IMPAIRED (CI) If pt's [facility] benefits exhausted If patient's Medicare benefits are exhausted, please review: #Min Spent: 25 at 0836
[2017-06-08] MEDS ORDERED: CEFDINIR 300MG300 MG PO (08:50)
[2017-06-08] MEDS ORDERED: ZITHROMAX TRI-500 M1 PO (08:50)
[2017-06-08 11:41] VITALS: BP 153/91
--- NOTE | 2017-06-11 13:01 | DISCHARGE SUMMARY STANDARD ---
Discharge Summary (FCA2) Date of admission: 06/06/17 Date of discharge: 06/08/17 Problem List: 1. Right upper lobe pneumonia 2. Near syncope 3. Cardiomyopathy 4. History of CVA with residual deficit 5. Hypertension 6. Hypothyroidism 7. Chronic renal failure 8. Chronic constipation 9. AAA (abdominal aortic aneurysm) without rupture History of present illness: History of Present Illness: Mr. Torre is 81-year-old white male with a history of hypertension, cerebrovascular disease, cardiomyopathy, hypothyroidism, and chronic renal failure who was in his usual state of health until shortly after noon day of admission. According to his he was sitting up in his wheelchair when she heard a strange noise. When she entered the room, she found him slumped to the side and drooling. He had not totally lost consciousness but responded inappropriately for several minutes. She immediately called the ambulance and by the time they arrived he was more alert and sitting back up in his chair but seemed a bit disoriented. He was brought to the emergency room where he was evaluated. CT scan of the head showed nothing acute. His laboratory data was fairly unremarkable. Cardiac enzymes were negative. His chest x-ray however did show a possible early right upper lobe infiltrate. His noted that he had some increased cough and congestion over the past few days but no fever. Appetite had been fairly normal. H had ongoing problems with constipation and his hospice physician has adjusted some of his medications and in fact had discontinued his Plavix about 2 weeks ago. He was admitted for observation of his neurologic status, monitoring for cardiac dysrhythmia, and treatment of his pneumonia. Exam on admission: 1ST Vital Signs Result Date Time Pulse Ox 97 06/05 1320 B/P 154/89 06/05 1320 O2 Flow Rate 2 06/05 1320 Temp 98.2 06/05 1320 Pulse 67 06/05 1320 Resp 18 06/05 1320 O2 Delivery OXYGEN 06/05 1638 Exam: General appearance: he is lying in bed and somewhat lethargic. He does open his eyesan attempts to talk. Eyes: conjunctiva clear ENT: mucous membranes moist Neck: no carotid bruit, no masses Cardiovascular: regular rate & rhythm Respiratory: generally diminished but otherwise clear ABD: non-distended, normal bowel sounds, soft, no tenderness, no guarding Extremities: no peripheral edema Skin: dry, normal color, warm Neuro: right hemiparesthesias Lab data: Labs: Laboratory Tests 06/05/17 1545: Troponin I 0.05 06/05/17 1545: Lactic Acid 1.1 06/05/17 1310: Sodium 137, Potassium 3.5, Chloride 100, Carbon Dioxide 27, BUN 25 H, Creatinine 2.3 H, Estimated Creat Clear 23 L, Estimated GFR (MDRD) 27, Glucose 181 H, Calcium 8.4 L, Total Bilirubin 0.3, AST 18, ALT 15, Alkaline Phosphatase 91, Creatine Kinase 61, CK-MB (CK-2) Rel Index 2.8, CK and CKMB Interp 1.7, Troponin I 0.04, Total Protein 7.2, Albumin 3.7, Globulin 3.5 H, Albumin/Globulin Ratio 1.1, WBC 8.9, RBC 4.06 L, Hgb 9.5 L, Hct 31.8 L, MCV 78.2 L, RDW 15.8, Plt Count 372, MPV 7.3 L, Gran % 64.7, Gran # 5.8, Lymphocytes % 21.9, Monocytes % 6.0, Eosinophils % 6.5, Basophils % 0.8, Lymphocytes # 1.9, Monocytes # 0.5, Eosinophils # 0.6 H, Basophils # 0.1, PUBS MCHC 29.8 L, MCH 23.3 L Hospital Course: On admission pt was started on IV ABX and hydrated. He did make some improvement. He became more alert and began to eat better. He was evaluated by speech therapy with the following assessment: Impression Mr. Torre, an 81 year old male, was referred for a bedside evaluation of swallowing by his physician, Dr. Toure. Mr. Torre has a history of CVA resulting in right side facial weakness but oral motor function is within functional limits. Mr. Torre was given the following consistencies: thins via straw and open cup and regular. No signs of dysphagia were noted. At this time, it is recommended that Mr. Torre remain on current diet. If he were to have meat, it is recommended that he have it chopped with gravy/sauce. At this time, speech therapy is not warranted due to difficulty following directions. Family was given compensatory strategies: head turn to right/chin down to aid in safe swallowing. Liquids should be given via straw. PLAN SWALLOW GUIDELINES Standard Aspiration Prec., Head Positioning (Chin Down-Turn Right), Liquids Given (Straw Only) On 06/08/17 patient was felt to have improved enough to be discharged to home with continued Hospice care on oral ABX. See lab and imaging results. Laboratory data this visit: 06/05/17 1545: Troponin I 0.05 06/05/17 1545: Lactic Acid 1.1 06/05/17 1310: Sodium 137, Potassium 3.5, Chloride 100, Carbon Dioxide 27, BUN 25 H, Creatinine 2.3 H, Estimated Creat Clear 23 L, Estimated GFR (MDRD) 27, Glucose 181 H, Calcium 8.4 L, Total Bilirubin 0.3, AST 18, ALT 15, Alkaline Phosphatase 91, Creatine Kinase 61, CK-MB (CK-2) Rel Index 2.8, CK and CKMB Interp 1.7, Troponin I 0.04, Total Protein 7.2, Albumin 3.7, Globulin 3.5 H, Albumin/Globulin Ratio 1.1, WBC 8.9, RBC 4.06 L, Hgb 9.5 L, Hct 31.8 L, MCV 78.2 L, RDW 15.8, Plt Count 372, MPV 7.3 L, Gran % 64.7, Gran # 5.8, Lymphocytes % 21.9, Monocytes % 6.0, Eosinophils % 6.5, Basophils % 0.8, Lymphocytes # 1.9, Monocytes # 0.5, Eosinophils # 0.6 H, Basophils # 0.1, PUBS MCHC 29.8 L, MCH 23.3 L 06/06/17 0605: Sodium 137, Potassium 3.4 L, Chloride 104, Carbon Dioxide 26, BUN 22 H, Creatinine 1.9 H, Estimated Creat Clear 28 L, Estimated GFR (MDRD) 34, Glucose 104, Calcium 7.8 L, WBC 6.3, RBC 3.52 L, Hgb 8.2 L, Hct 27.6 L, MCV 78.5 L, RDW 15.8, Plt Count 301, MPV 7.7, Gran % 73.4, Gran # 4.7, Lymphocytes % 14.2, Monocytes % 6.7, Eosinophils % 5.3, Basophils % 0.5, Lymphocytes # 0.9, Monocytes # 0.4, Eosinophils # 0.3, Basophils # 0.0, PUBS MCHC 29.5 L, MCH 23.2 L 06/05/17 1905: Troponin I 0.05 06/05/17 1545: Troponin I 0.05 06/05/17 1545: Lactic Acid 1.1 06/07/17 0610: Sodium 138, Potassium 3.9, Chloride 105, Carbon Dioxide 28, BUN 23 H, Creatinine 1.8 H, Estimated Creat Clear 29 L, Estimated GFR (MDRD) 36, Glucose 108 H, Calcium 7.8 L, WBC 6.3, RBC 3.47 L, Hgb 8.1 L, Hct 27.1 L, MCV 78.1 L, RDW 15.8, Plt Count 280, MPV 6.7 L, Gran % 72.7, Gran # 4.6, Lymphocytes % 13.5, Monocytes % 6.0, Eosinophils % 7.1, Basophils % 0.7, Lymphocytes # 0.9, Monocytes # 0.4, Eosinophils # 0.5 H, Basophils # 0.0, PUBS MCHC 29.8 L, MCH 23.3 L Vital Signs Imagin06/05/17 CT of head IMPRESSION: 1. No acute intracranial pathology. 2. 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 3. Mild ethmoid and left mastoid sinus disease CXR 06/05/17 IMPRESSION: 1. Abnormal chest with cardiomegaly and dilated/tortuous descending thoracic aorta with chronic changes in the right lung base. 2. Patchy infiltrate in right upper lobe. CXR 06/06/17 IMPRESSION: 1. Thoracic aortic aneurysm. Consider chest CT for more thorough evaluation. 2. No change right upper lobe pneumonia with chronic changes in the right lung base Discharge medications: Continue taking these medications: Aspirin (Adult Low Dose Aspirin EC) 81 MG TABLET. 81 MILLIGRAM ORAL DAILY LEVOTHYROXINE SOD (Levothyroxine 0.05MG) 50 MCG TABLET 0.05 MILLIGRAM ORAL DAILY Mirabegron (Myrbetriq) 25 MG TAB.ER.24H 25 MILLIGRAM ORAL MoWeFr Qty = 30 DESIPRAMINE HCL (Desipramine HCl) 25 MG TABLET 1-2 TABLET ORAL DAILY Qty = 60 Isosorbide Dinitrate (Isosorbide Dinitrate 20MG) 20 MG TABLET 40 MILLIGRAM ORAL Q8H Qty = 90 Morphine Sulfate (Morphine Sulf Oral Conc) 100 MG/5 ML SOLUTION 0.5 MILLILITER ORAL EVERY 4 HOURS NEEDED as needed for BREATHING/PAIN Docusate Calcium (Stool Softener) 240 MG CAPSULE 2 CAPSULE ORAL TWICE A DAY as needed for CONSTIPATION Bisacodyl (Bisa-Lax) 5 MG TABLET.DR 10 MILLIGRAM ORAL EVERY 3 DAYS Bacillus Coagulans (Probiotic) 1 EACH CAPSULE.DR 1 EACH ORAL DAILY Lorazepam (Lorazepam 0.5MG) 0.5 MG TABLET 0.5 MILLIGRAM ORAL EVERY 6 HOURS NEEDED as needed for ANXIETY Amlodipine Besylate (Amlodipine) 10 MG TABLET 10 MILLIGRAM ORAL DAILY Hydralazine Hcl (Hydralazine Hydrochloride) 100 MG TABLET 100 MILLIGRAM ORAL THREE TIMES A DAY Senna Pod (Senna Laxative) 8.6 MG TABLET 1 TABLET ORAL TWICE A DAY Start taking the following new medications: Azithromycin (Zithromax Tri-Guy) 500 MG TABLET 500 MILLIGRAM ORAL DAILY Qty = 3 No Refills CEFDINIR (Cefdinir) 300 MG CAPSULE 300 MILLIGRAM ORAL TWICE A DAY Qty = 14 No Refills Disposition: Discharged to home in guarded condition Meds as per reconciliation sheet; To continue with same diet with aspiration precautions; To continue with same activity level; FU with Hospice in 1 day at 5034
== END 2017-06-08 11:22 | disposition hospice, home (50) | DRG 194 ==
LOC: ER 13:18 → 2ND 15:08 → ER 15:08 → 2ND 15:08
PROVIDERS: Emergency Medicine; Family Medicine
DX: J18.9 Pneumonia, unspecified organism (principal); I69.351 Hemiplegia and hemiparesis following cerebral infarction affecting right dominant side; I42.9 Cardiomyopathy, unspecified; J44.9 Chronic obstructive pulmonary disease, unspecified; I69.320 Aphasia following cerebral infarction; I10 Essential (primary) hypertension
CPT/HCPCS: G0378; J0456